=== PATIENT | female | born 1955 | race Caucasian/White ===

== ENCOUNTER 2017-11-11 16:13 | Emergency (ER) | payer OTHER, SELFPAY ==
[2017-11-11 16:17] VITALS: BP 139/50; PULSE 72; RESP 15; TEMP 36.9; O2SAT 95
--- NOTE | 2017-11-11 18:55 | DI.RAD.S_ITS ---
PROCEDURE: XR CHEST 1V INDICATIONS: chest pain TECHNIQUE: One view of the chest was acquired. COMPARISON: [facility], , CHEST 1 VIEW, 04/01/2017, 18:02. FINDINGS: Surgical changes and devices: None. Lungs and pleura: No pleural effusions or pneumothorax. Lungs are clear. Mediastinum: Tortuous thoracic aorta is again seen. Heart size is enlarged Bones and chest wall: No suspicious bony lesions. Overlying soft tissues appear unremarkable. IMPRESSION: No acute cardiopulmonary pathology. Dictated by: Rizwan Quintero M.D. on 11/11/2017 at 19:18 Approved by: Rizwan Quintero M.D. on 11/11/2017 at 19:20
[2017-11-11] MEDS: ONDANSETRON 4 MG/2 ML INJ IV (19:20)
[2017-11-11] MEDS: MORPHINE 2 MG/ML INJ IV (19:20)
[2017-11-11 19:36] LABS: Add Manual Diff / Slide Review NO; Basophils Percent Auto 1.3 % (0-2); Eosinophils Percent Auto 3.4 % (2-4); Hemoglobin 11.7 g/dL (12.0-16.0); Lymphocytes Percent Auto 22.6 % (25-40); Mean Corpuscular HGB Conc 33.4 % (30-36); Mean Corpuscular Hemoglobin 32.3 PG (26-34); Mean Corpuscular Volume 96.7 fL (80-100); Monocytes Percent Auto 6.1 % (3-14); Neutrophils Absolute Auto 7700 /uL (3000-5900); Neutrophils Percent Auto 66.6 % (50-75); Platelet Count 228 X10^3/uL (150-400); Red Blood Cell Count 3.62 X10^6/uL (4.0-5.2); Red Cell Distribution Width 13.4 % (11.6-14.8); White Blood Cell Count 11.6 X10^3/uL (4.5-11.0)
[2017-11-11 19:53] LABS: Alanine Aminotransferase 44 IU/L (9-52); Albumin 4.5 g/dL (3.5-5.0); Albumin Globulin Ratio 1.5 (1.0-2.8); Alkaline Phosphatase 65 U/L (38-126); Amylase 64 U/L (30-110); Aspartate Aminotransferase 41 IU/L (14-36); Bilirubin Total 0.5 mg/dL (0.2-1.3); Blood Urea Nitrogen 29 mg/dL (7-17); Calcium 9.8 mg/dL (8.4-10.2); Carbon Dioxide 31 mmol/L (22-32); Chloride 95 mmol/L (98-107); Creatine Kinase 149 U/L (30-135); Estimated Glomerular Filt Rate 55.8 mL/min (>60); Globulin 3.1 g/dL (1.7-4.1); Glucose 132 mg/dL (80-110); Lipase 228 U/L (23-300); Sodium 136 mmol/L (137-145); Total Protein 7.6 g/dL (6.3-8.2)
[2017-11-11 19:55] LABS: HEMOLYSIS 61 (0-50)
[2017-11-11 19:56] LABS: Potassium 3.9 mmol/L (3.4-5.1)
[2017-11-11 20:09] LABS: Troponin I < 0.012 ng/mL (0.01-0.034)
--- NOTE | 2017-11-11 20:19 | DI.CT.S_ITS ---
PROCEDURE: CT ABDOMEN PELVIS W CON INDICATIONS: abd pain- epigastric TECHNIQUE: After the administration of intravenous contrast, 5 mm thick sections acquired from the diaphragm to the symphysis. 5 mm coronal and sagittal reformats were acquired. For radiation dose reduction, the following was used: automated exposure control, adjustment of mA and/or kV according to patient size. COMPARISON: None. FINDINGS: Image quality: Excellent. ABDOMEN: Lung bases: Lung bases are clear. Heart size is normal. Solid organs: Liver is normal in size and enhancement. Hepatic steatosis is seen. Gallbladder is within normal limits. Biliary system is non dilated. Pancreas is normal in size. At least 4 small hypodense areas are seen scattered in body and tail of pancreas measures between 4-5 mm in size and are too small to characterize. No peripancreatic fluid collection or inflammation is seen. Spleen is normal in size and enhancement. No adrenal nodules. Kidneys demonstrate normal size and enhancement, without hydronephrosis. Peritoneum and bowel: Bowel loops demonstrate normal wall thickness and caliber. No free fluid or air. There is a small hiatal hernia. Nodes and vessels: No retroperitoneal or mesenteric adenopathy by size criteria. Aorta and inferior vena cava are normal in size. Miscellaneous: Small umbilical hernia is seen containing fat only. PELVIS: Genitourinary: Bladder wall thickness is normal. Miscellaneous: No inguinal hernias or adenopathy. Bones: No suspicious bony lesions. No vertebral body compression fractures. IMPRESSION: 1. No acute inflammatory process within abdomen or pelvis. No bowel obstruction. No free fluid or free air. 2. At least 4 tiny 4-5 mm hypodense areas scattered in body and tail of pancreas which may represent tiny cyst or pseudocyst versus IPMN. No peripancreatic inflammatory changes. Dictated by: Rizwan Quintero M.D. on 11/11/2017 at 21:15 Approved by: Rizwan Quintero M.D. on 11/11/2017 at 21:20
[2017-11-11 20:30] VITALS: BP 122/43; PULSE 66; RESP 100; O2SAT 22
[2017-11-11 20:30] LABS: CKMB % Relative Index 1.7 % (1.5-5.0); Creatine Kinase MB 2.46 ng/mL (<2.37)
[2017-11-11] MEDS: SODIUM CHLORIDE 0.9% 1,000 ML 100 ML IV (21:00)
[2017-11-11] MEDS: MAG HYDROX/ALUMINUM/SIMETH SUS 20 ML, LIDOCAINE VISCOUS 2% 15 ML PO (21:53)
[2017-11-11 22:38] VITALS: BP 103/51; PULSE 64; RESP 23; O2SAT 100
--- NOTE | 2017-11-11 22:46 | ED_ITS ---
HPI - Abdominal Pain <ART Rivers - Last Filed: 11/11/17 22:58> General Chief Complaint: Urogenital-Female Stated Complaint: STATES KIDNEY PAIN Time Seen by Provider: 11/11/17 18:16 Source: patient Mode of arrival: ambulatory Limitations: no limitations History of Present Illness HPI narrative: Patient presents with chief complaint of epigastric pain and right flank pain. Patient states she has had right-sided flank pain since the . She denies dysuria urgency frequency. She denies fevers. She denies nausea vomiting or diarrhea. She denies chest pain or shortness of breath or cough. She states that she has had some epigastric pain that lasted for few minutes a few days ago on his come back in some spasms. She denies radiation of this pain. States it is like an aching or burning. Flank pain stays in right flank. Of note she does have COPD is on home oxygen. Related Data Home Medications Medication Instructions Recorded Confirmed ASPIRIN (Aspirin EC) 81 mg PO Q DAY #0 10/25/10 albuterol sulfate 3 ml INH TID #0 04/01/17 albuterol sulfate [Ventolin HFA] 2 puff INH #0 04/01/17 furosemide 60 mg PO QPM #0 04/01/17 furosemide 80 mg PO QDAY #0 04/01/17 lorazepam [Ativan] 1 mg PO HS #0 04/01/17 potassium chloride 10 meq PO QDAY #0 04/01/17 Previous Rx's Medication Instructions Recorded clindamycin HCl 300 mg PO Q6H 10 Days #0 cap 04/01/17 dexamethasone 4 mg PO QDAY 3 Days #0 tab 04/01/17 tramadol 50 mg PO Q4-6H PRN #20 tab 11/11/17 Allergies Allergy/AdvReac Type Severity Reaction Status Date / Time Penicillins [PENICILLINS] Allergy Severe HIVES Unverified 06/03/17 12:56 Sulfa (Sulfonamide Allergy Severe HIVES Unverified 06/03/17 12:56 Antibiotics) [SULFA (SULFONAMIDE ANTIBIOTICS)] chlorthalidone Allergy Unknown Unverified 06/03/17 12:56 [CHLORTHALIDONE] adhesive [ADHESIVE] AdvReac Mild HIVES Unverified 06/03/17 12:56 Review of Systems <ART Rivers - Last Filed: 11/11/17 22:58> Review of Systems GENERAL: Denies chills, fatigue, malaise, fever, sweats. HEENT: Denies sinus pain, ear pain, sore throat, difficulty swallowing, dizziness. RESPIRATORY: Denies dyspnea, cough, wheezing, hemoptysis, sputum. CARDIOVASCULAR: Denies chest pain, palpitations, orthopnea, edema, GASTROINTESTINAL: See HPI : See HPI MUSCULOSKELETAL: denies weakness, joint pain, or bony pain SKIN: Denies rash, skin lesions, or other NEUROLOGIC: Denies weakness, headache, numbness, change in speech, confusion, seizures, incoordination. PSYCHIATRIC: No concerning psychosocial issues. 12 point review of systems is negative except for those stated above Exam <Sofyaemma Feltonmer, [facility] - Last Filed: 11/11/17 22:58> Narrative Exam Narrative: GENERAL: Chronically ill elderly female. HEAD: Atraumatic. Normocephalic. No temporal or scalp tenderness. EYES: Pupils equal round and reactive. Extraocular motions intact. No scleral icterus. No injection or drainage. ENT: Nose without bleeding, purulent drainage or septal hematoma. Throat without erythema, tonsillar hypertrophy or exudate. Uvula midline. Airway patent. NECK: Trachea midline. No JVD or lymphadenopathy. Supple, nontender, no meningeal signs. CARDIOVASCULAR: Regular rate and rhythm without murmurs, gallops, or rubs. RESPIRATORY: Decreased with expiratory wheeze to auscultation. Breath sounds equal bilaterally. No wheezes, rales, or rhonchi. GASTROINTESTINAL: Abdomen obese and diffusely tender in the left upper quadrant and epigastric area, negative Lizama sign., nondistended. No hepato-splenomegaly , or palpable masses. No guarding. Nonrigid abdomen. Active bowel sounds all 4 quadrants. No palpable pulsatile mass. EXTREMITIES: No clubbing, cyanosis, or edema. No joint tenderness, effusion, or edema noted. BACK: Nontender without deformity or crepitance. Flank tenderness noted on right side. NEURO: AOx3. SKIN: No rash or erythema. Initial Vital Signs Initial Vital Signs: Vital Signs Temperature 98.5 F 11/11/17 16:17 Pulse Rate 72 11/11/17 16:17 Respiratory Rate 15 11/11/17 16:17 Blood Pressure 139/50 L 11/11/17 16:17 Pulse Oximetry 95 11/11/17 16:17 <Mani Hayward DO - Last Filed: 11/11/17 23:49> Initial Vital Signs Initial Vital Signs: Vital Signs Temperature 98.5 F 11/11/17 16:17 Pulse Rate 72 11/11/17 16:17 Respiratory Rate 15 11/11/17 16:17 Blood Pressure 139/50 L 11/11/17 16:17 Pulse Oximetry 95 11/11/17 16:17 Course <ART Rivers - Last Filed: 11/11/17 22:58> Orders Ordered: ED Orders 11/11/17 18:53 EKG-12 Lead Stat 11/11/17 18:55 XR chest 1V Stat 11/11/17 19:35 Amylase Stat Complete Blood Count AUTO DIFF Stat Comprehensive Metabolic Panel Stat Lipase Stat Troponin & CK Cardiac Panel Stat 11/11/17 20:19 CT abdomen pelvis w con Stat Discontinued Medications Al Hydrox/Mg Hydrox/Simethicone 20 ml/ Lidocaine HCl 15 ml 0 ml PO NOW ONE Stop: 11/11/17 21:51 Last Admin: 11/11/17 21:53 Dose: 35 ml Sodium Chloride (Normal Saline 0.9%) 1,000 mls @ 100 mls/hr IV CONT JOSÉ MIGUEL Last Infusion: 11/11/17 23:15 Dose: 100 mls/hr Admin: 11/11/17 21:00 Dose: 100 mls/hr Morphine Sulfate (Morphine) 2 mg IV NOW ONE Stop: 11/11/17 18:54 Last Admin: 11/11/17 19:20 Dose: 2 mg Ondansetron HCl (Zofran) 4 mg IV NOW ONE Stop: 11/11/17 18:54 Last Admin: 11/11/17 19:20 Dose: 4 mg Tramadol HCl (Ultram) 50 mg PO NOW ONE Stop: 11/11/17 22:53 Last Admin: 11/11/17 23:03 Dose: 50 mg Vital Signs - 8 hr 11/11/17 16:17 11/11/17 20:30 11/11/17 22:38 Temperature 98.5 F Pulse Rate 72 66 64 Respiratory Rate 15 100 H 23 Blood Pressure 139/50 L Blood Pressure [Right Arm] 122/43 L 103/51 L Pulse Oximetry 95 22 L 100 <Mani Hayward DO - Last Filed: 11/11/17 23:49> Orders Ordered: ED Orders 11/11/17 18:53 EKG-12 Lead Stat 11/11/17 18:55 XR chest 1V Stat 11/11/17 19:35 Amylase Stat Complete Blood Count AUTO DIFF Stat Comprehensive Metabolic Panel Stat Lipase Stat Troponin & CK Cardiac Panel Stat 11/11/17 20:19 CT abdomen pelvis w con Stat Discontinued Medications Al Hydrox/Mg Hydrox/Simethicone 20 ml/ Lidocaine HCl 15 ml 0 ml PO NOW ONE Stop: 11/11/17 21:51 Last Admin: 11/11/17 21:53 Dose: 35 ml Sodium Chloride (Normal Saline 0.9%) 1,000 mls @ 100 mls/hr IV CONT JOSÉ MIGUEL Last Infusion: 11/11/17 23:15 Dose: 100 mls/hr Admin: 11/11/17 21:00 Dose: 100 mls/hr Morphine Sulfate (Morphine) 2 mg IV NOW ONE Stop: 11/11/17 18:54 Last Admin: 11/11/17 19:20 Dose: 2 mg Ondansetron HCl (Zofran) 4 mg IV NOW ONE Stop: 11/11/17 18:54 Last Admin: 11/11/17 19:20 Dose: 4 mg Tramadol HCl (Ultram) 50 mg PO NOW ONE Stop: 11/11/17 22:53 Last Admin: 11/11/17 23:03 Dose: 50 mg Vital Signs - 8 hr 11/11/17 16:17 11/11/17 20:30 11/11/17 22:38 Temperature 98.5 F Pulse Rate 72 66 64 Respiratory Rate 15 100 H 23 Blood Pressure 139/50 L Blood Pressure [Right Arm] 122/43 L 103/51 L Pulse Oximetry 95 22 L 100 MDM - Abdominal Pain <ELPIDIO Rivers-BC - Last Filed: 11/11/17 22:58> Lab Data Result diagrams: 11/11/17 19:35 11/11/17 19:35 Lab Results 11/11/17 11/11/17 Range/Units 19:35 19:35 WBC 11.6 H (4.5-11.0) X10^3/uL RBC 3.62 L (4.0-5.2) X10^6/uL Hgb 11.7 L (12.0-16.0) g/dL Hct 35.0 L (36-46) % MCV 96.7 (80-100) fL MCH 32.3 (26-34) PG MCHC 33.4 (30-36) % RDW 13.4 (11.6-14.8) % Plt Count 228 (150-400) X10^3/uL Neut % (Auto) 66.6 (50-75) % Lymph % (Auto) 22.6 L (25-40) % [place] % (Auto) 6.1 (3-14) % Eos % (Auto) 3.4 (2-4) % Baso % (Auto) 1.3 (0-2) % Neut # (Auto) 7700 H (9213-9784) /uL Sodium 136 L (137-145) mmol/L Potassium 3.9 (3.4-5.1) mmol/L Chloride 95 L (98-107) mmol/L Carbon Dioxide 31 (22-32) mmol/L BUN 29 H (7-17) mg/dL Creatinine 1.00 (0.52-1.04) mg/dL Estimated GFR 55.8 L (>60) mL/min BUN/Creatinine Ratio 29.0 H (6-22) Glucose 132 H (80-110) mg/dL Calcium 9.8 (8.4-10.2) mg/dL Total Bilirubin 0.5 (0.2-1.3) mg/dL AST 41 H (14-36) IU/L ALT 44 (9-52) IU/L Alkaline Phosphatase 65 (38-126) U/L Total Creatine Kinase 149 H (30-135) U/L CK-MB (CK-2) 2.46 H (<2.37) ng/mL CK-MB (CK-2) Rel Index 1.7 (1.5-5.0) % Troponin I < 0.012 (0.01-0.034) ng/mL Total Protein 7.6 (6.3-8.2) g/dL Albumin 4.5 (3.5-5.0) g/dL Globulin 3.1 (1.7-4.1) g/dL Albumin/Globulin Ratio 1.5 (1.0-2.8) Amylase 64 (30-110) U/L Lipase 228 (23-300) U/L Point of care testing: Urine Dip Bedside Urine Glucose Negative Bedside Urine Bilirubin - Negative Bedside Urine Ketone - Negative Urine Specific [place] 1.0 Bedside Urine Occult Blood - Negative Bedside Urine pH 6 Bedside Urine Protein - Negative Bedside Urine Urobilinogen +/- 1mg Bedside Urine Nitrite - Negative Bedside Urine Leukocytes - Negative Esterase Imaging Data Chest x-ray: Radiologist's impression: [address] [address] XRay Report Signed Patient: Tish Yuen AMR#: [id number] : 4Acct:[id number] Age/Sex: 62 / FDate of Service: 11/11/17 Loc: ED Accession Number: [id number] Procedure: XR chest 1V Ordering Provider: Sofya Oseguera PROCEDURE: XR CHEST 1V INDICATIONS: chest pain TECHNIQUE: One view of the chest was acquired. COMPARISON: [facility], CHEST 1 VIEW, 04/01/2017, 18:02. FINDINGS: Surgical changes and devices: None. Lungs and pleura: No pleural effusions or pneumothorax. Lungs are clear. Mediastinum: Tortuous thoracic aorta is again seen. Heart size is enlarged Bones and chest wall: No suspicious bony lesions. Overlying soft tissues appear unremarkable. IMPRESSION: No acute cardiopulmonary pathology. Dictated by: Rizwan Quintero M.D. on 11/11/2017 at 19:18 Approved by: Rizwan Quintero M.D. on 11/11/2017 at 19:20 CT scan - abdomen: Radiologist's impression: [address] [address] [address] Scan Report Signed Patient: Tish Yuen AMR#: [id number] : 4Acct:[id number] Age/Sex: 62 / FDate of Service: 11/11/17 Loc: ED Accession Number: [id number] Procedure: CT abdomen pelvis w con Ordering Provider: Sofya Oseguera PROCEDURE: CT ABDOMEN PELVIS W CON INDICATIONS: abd pain- epigastric TECHNIQUE: After the administration of intravenous contrast, 5 mm thick sections acquired from the diaphragm to the symphysis. 5 mm coronal and sagittal reformats were acquired. For radiation dose reduction, the following was used: automated exposure control, adjustment of mA and/or kV according to patient size. COMPARISON: None. FINDINGS: Image quality: Excellent. ABDOMEN: Lung bases: Lung bases are clear. Heart size is normal. Solid organs: Liver is normal in size and enhancement. Hepatic steatosis is seen. Gallbladder is within normal limits. Biliary system is non dilated. Pancreas is normal in size. At least 4 small hypodense areas are seen scattered in body and tail of pancreas measures between 4-5 mm in size and are too small to characterize. No peripancreatic fluid collection or inflammation is seen. Spleen is normal in size and enhancement. No adrenal nodules. Kidneys demonstrate normal size and enhancement, without hydronephrosis. Peritoneum and bowel: Bowel loops demonstrate normal wall thickness and caliber. No free fluid or air. There is a small hiatal hernia. Nodes and vessels: No retroperitoneal or mesenteric adenopathy by size criteria. Aorta and inferior vena cava are normal in size. Miscellaneous: Small umbilical hernia is seen containing fat only. PELVIS: Genitourinary: Bladder wall thickness is normal. Miscellaneous: No inguinal hernias or adenopathy. Bones: No suspicious bony lesions. No vertebral body compression fractures. IMPRESSION: 1. No acute inflammatory process within abdomen or pelvis. No bowel obstruction. No free fluid or free air. 2. At least 4 tiny 4-5 mm hypodense areas scattered in body and tail of pancreas which may represent tiny cyst or pseudocyst versus IPMN. No peripancreatic inflammatory changes. Dictated by: Rizwan Quintero M.D. on 11/11/2017 at 21:15 Approved by: Rizwan Quintero M.D. on 11/11/2017 at 21:20 ECG Data Attestation: I personally reviewed and interpreted this ECG as follows: Prior ECG tracings: not available for review Interpretation: Ventricular rate 75. Syncope CC. No ST elevation or depression. CO interval 192 MDM Narrative Medical decision making narrative: The patient presented with chief complaint of flank pain and epigastric pain. Her lab work came back grossly normal for her. She was noted to be anemic, but this is consistent with her baseline. Her troponin was negative and her CK-MB relative index was low. We controlled her pain with morphine in the emergency department. Her abdominal CT scan revealed several masses in her pancreas of indeterminate nature that are very small. I discussed this with the patient, discussed that she needs to follow up with primary care provider in the next few days for further workup and imaging. She had no questions or concerns upon discharge. I gave her a prescription of tramadol. I discussed return precautions including inability keep down fluids, symptoms of heart attack or stroke. Patient states understanding of discharge instructions. <Mani Hayward, DO - Last Filed: 11/11/17 23:49> Lab Data Lab Results 11/11/17 11/11/17 Range/Units 19:35 19:35 WBC 11.6 H (4.5-11.0) X10^3/uL RBC 3.62 L (4.0-5.2) X10^6/uL Hgb 11.7 L (12.0-16.0) g/dL Hct 35.0 L (36-46) % MCV 96.7 (80-100) fL MCH 32.3 (26-34) PG MCHC 33.4 (30-36) % RDW 13.4 (11.6-14.8) % Plt Count 228 (150-400) X10^3/uL Neut % (Auto) 66.6 (50-75) % Lymph % (Auto) 22.6 L (25-40) % [place] % (Auto) 6.1 (3-14) % Eos % (Auto) 3.4 (2-4) % Baso % (Auto) 1.3 (0-2) % Neut # (Auto) 7700 H (7310-2589) /uL Sodium 136 L (137-145) mmol/L Potassium 3.9 (3.4-5.1) mmol/L Chloride 95 L (98-107) mmol/L Carbon Dioxide 31 (22-32) mmol/L BUN 29 H (7-17) mg/dL Creatinine 1.00 (0.52-1.04) mg/dL Estimated GFR 55.8 L (>60) mL/min BUN/Creatinine Ratio 29.0 H (6-22) Glucose 132 H (80-110) mg/dL Calcium 9.8 (8.4-10.2) mg/dL Total Bilirubin 0.5 (0.2-1.3) mg/dL AST 41 H (14-36) IU/L ALT 44 (9-52) IU/L Alkaline Phosphatase 65 (38-126) U/L Total Creatine Kinase 149 H (30-135) U/L CK-MB (CK-2) 2.46 H (<2.37) ng/mL CK-MB (CK-2) Rel Index 1.7 (1.5-5.0) % Troponin I < 0.012 (0.01-0.034) ng/mL Total Protein 7.6 (6.3-8.2) g/dL Albumin 4.5 (3.5-5.0) g/dL Globulin 3.1 (1.7-4.1) g/dL Albumin/Globulin Ratio 1.5 (1.0-2.8) Amylase 64 (30-110) U/L Lipase 228 (23-300) U/L Point of care testing: Urine Dip Bedside Urine Glucose Negative Bedside Urine Bilirubin - Negative Bedside Urine Ketone - Negative Urine Specific [place] 1.0 Bedside Urine Occult Blood - Negative Bedside Urine pH 6 Bedside Urine Protein - Negative Bedside Urine Urobilinogen +/- 1mg Bedside Urine Nitrite - Negative Bedside Urine Leukocytes - Negative Esterase Discharge Plan Departure Patient Disposition: Home Clinical Impression: Cystic mass of pancreas Discharge Date/Time: 11/11/17 23:17 Interventions: ED Discharge Assessment Last Done: 11/11/17 23:16 Instructions: DI for Abdominal Pain-Adult, DI for Flank Pain Activity Restrictions/Additional Instructions: Today we found multiple small cystic masses on your pancreas. Please follow-up with her primary care provider regarding this as they need further workup and further imaging. Come back to the emergency department for any acute concerns including heart attack or stroke. I have given you a small pain medication prescription, and this can be constipating so please take it with extra fiber. Use stool softeners if needed. Prescriptions: New tramadol 50 mg tablet 50 mg PO Q4-6H PRN (Reason: pain) Qty: 20 RF: 0 No Action ASPIRIN (Aspirin EC) 81 mg PO Q DAY Qty: 0 RF: 0 lorazepam [Ativan] 1 MG tablet 1 mg PO HS Qty: 0 RF: 0 albuterol sulfate 2.5 MG/3 ML solution for nebulization 3 ml INH TID Qty: 0 RF: 0 albuterol sulfate [Ventolin HFA] 90 MCG/PUFF HFA aerosol inhaler 2 puff INH Qty: 0 RF: 0 furosemide 40 MG tablet 60 mg PO QPM Qty: 0 RF: 0 furosemide 40 MG tablet 80 mg PO QDAY Qty: 0 RF: 0 potassium chloride 10 MEQ capsule, extended release 10 meq PO QDAY Qty: 0 RF: 0 clindamycin HCl 300 MG capsule 300 mg PO Q6H 10 Days Qty: 0 RF: 0 dexamethasone 4 MG tablet 4 mg PO QDAY 3 Days Qty: 0 RF: 0 Referrals: Nick Washington MD [Primary Care Provider] - <Mani Hayward DO - Last Filed: 11/11/17 23:49> Cosign ED Attending Cosadánature Attestation: I was available for consultation during this patient's emergency department encounter
[2017-11-11] MEDS: TRAMADOL 50 MG TABLET PO (23:03)
== END 2017-11-11 23:17 | disposition home or self-care (01) ==
PROVIDERS: Emergency Medicine; Emergency Provider Nurse Practitioner Family
DX: K86.2 Cyst of pancreas (principal)
CPT/HCPCS: 36415; 36591; 71045; 74177; 80053; 81003; 82150; 82550; 82553; 83690; 84484; 85025; 93005; 96361; 96374; 96375; 99283; 99285; J2270; J2405; Q9967

== ENCOUNTER → 2018-03-11 14:48 | Outpatient (CLI) | payer OTHER, SELFPAY ==
--- NOTE | 2018-03-11 | DI.ECHO.S_ITS ---
[place] +---------+ [facility] +---------+ : : [address] : : : : [id number] : : : : Phone: [phone] Echocardiogram Report + + :Name: AV CAIN Study Date: 03/11/2018 Height: 59 in : :[facility] Weight: 222 lb : : Gender: Female BSA: 1.9 m2 : :: 1955 Age: 62 yrs BP: 132/66 mmHg: :Reason For Study: Cor Pulmonale : :Ordering Physician: Tommy : :[place] Performed By: Lizbeth Jimenes : + + Interpretation Summary The left ventricle is grossly normal size. The ejection fraction is estimated to be 65-70%. The right ventricle is mildly dilated. The right ventricle appears to be hypertrophied. The right ventricular systolic function is normal. There is mild to moderate tricuspid regurgitation. Compared to the prior echo exam, there has been an increase in TR severity. The right ventricular systolic pressure is estimated to be at least 45 mmHg based on an estimated right atrial pressure of 3 mm Hg. Procedure: A two-dimensional transthoracic echocardiogram with color flow and Doppler was performed. The study quality was technically difficult. Images from the parasternal window were difficult to obtain and are suboptimal in quality. Comparison is made with the echocardiogram of 09/05/2016. The patient was in normal sinus rhythm during the exam. The patient had frequent PVCs during the exam. Left Ventricle: The left ventricle is not well visualized. The left ventricle is grossly normal size. There is no thrombus. The ejection fraction is estimated to be 65-70%. Septal motion is consistent with conduction abnormality. Diastolic parameters suggest a relaxation abnormality of the left ventricle, consistent with probable normal filling pressures. Right Ventricle: The right ventricle is mildly dilated. The right ventricle appears to be hypertrophied. The right ventricular systolic function is normal. Atria: The left atrium is mildly dilated. The left atrium has mildly increased in size since the prior echo exam. The right atrium is mildly dilated. There has been no significant change since the previous study. There is no Doppler evidence for an interatrial shunt. Mitral Valve: The mitral valve leaflets appear mildly thickened, but open well. There is mild mitral annular calcification. There is trace mitral regurgitation. Aortic Valve: The aortic valve is not well visualized. The aortic valve is mildly calcified. There is no hemodynamically significant valvular aortic stenosis. No aortic regurgitation is present. Tricuspid Valve: The tricuspid valve is not well visualized, but is grossly normal. There is mild to moderate tricuspid regurgitation. The right ventricular systolic pressure is estimated to be at least 45 mmHg based on an estimated right atrial pressure of 3 mm Hg. Compared to the prior echo exam, there has been an increase in TR severity. Pulmonic Valve: The pulmonic valve is not well visualized. Great Vessels: The aortic root is not well visualized. The ascending aorta could not be visualized. The IVC is of normal diameter and collapses greater than 50% with a sniff. This suggests a low right atrial pressure of 3 mm Hg. Pericardium/ Pleura There is no pericardial effusion. MMode/2D Measurements & Calculations LA A2 area: 19.1 cm2 RA long axis: 4.3 cm LA A4 area: 22.8 cm2 RA area: 14.4 cm2 LA length (vol): 5.0 cm RA vol: 41.2 ml LA vol: 74.7 ml RA : 21.4 ml/m2 LA vol index: 38.7 ml/m2 IVC diam: 1.4 cm TAPSE: 2.7 cm Doppler Measurements & Calculations Ao V2 max: 192.8 cm/sec LVOT Max Mike: 125.2 cm/sec Ao V2 mean: 99.6 cm/sec LV V1 max P.3 mmHg Ao max P.9 mmHg LV V1 VTI: 24.8 cm Ao mean P.1 mmHg sev ratio: 0.73 Ao V2 VTI: 33.9 cm MV E max mike: 79.6 cm/sec TR max mike: 323.9 cm/sec MV A max mike: 99.7 cm/sec TR max P.0 mmHg MV E/A: 0.80 Med Peak E' Mike: 7.2 cm/sec E/E' med: 11.1 Lat Peak E' Mike: 12.2 cm/sec E/E' lat: 6.5 E/e' average: 8.8 MV dec time: 0.23 sec MV P1/2t: 67.4 msec MV P1/2t max mike: 79.9 cm/sec MVA(P1/2t): 3.3 cm2 Reading Physician:PM
[2018-03-11 15:52] LABS: BUN Creatinine Ratio 25.5 (6-22); Blood Urea Nitrogen 28 mg/dL (7-17); Calcium 9.8 mg/dL (8.4-10.2); Carbon Dioxide 32 mmol/L (22-32); Chloride 94 mmol/L (98-107); Glucose 136 mg/dL (80-110); HEMOLYSIS < 15 (0-50); Potassium 4.3 mmol/L (3.4-5.1); Sodium 137 mmol/L (137-145)
== END ==
PROVIDERS: Visit Provider Internal Medicine Cardiovascular Disease
DX: I27.81 Cor pulmonale (chronic) (principal); I07.1 Rheumatic tricuspid insufficiency
CPT/HCPCS: 36415; 80048; 93306

== ENCOUNTER → 2018-06-11 16:31 | Outpatient (CLI) | payer OTHER, SELFPAY ==
[2018-06-11 18:16] LABS: BUN Creatinine Ratio 26.4 (6-22); Blood Urea Nitrogen 29 mg/dL (7-17); Calcium 9.8 mg/dL (8.4-10.2); Carbon Dioxide 32 mmol/L (22-32); Chloride 96 mmol/L (98-107); Glucose 114 mg/dL (80-110); HEMOLYSIS < 15 (0-50); Potassium 4.4 mmol/L (3.4-5.1); Sodium 137 mmol/L (137-145)
== END ==
PROVIDERS: Visit Provider Internal Medicine Critical Care Medicine
DX: R06.09 Other forms of dyspnea (principal)
CPT/HCPCS: 36415; 80048

== ENCOUNTER → 2018-11-02 16:44 | Outpatient (CLI) | payer MEDICARE, OTHER, SELFPAY ==
[2018-11-02 17:27] LABS: Hemoglobin A1C% w Est Avg Glu 6.3 % (4.0-6.0)
[2018-11-02 17:33] LABS: BUN Creatinine Ratio 31.8 (6-22); Blood Urea Nitrogen 35 mg/dL (7-17); Calcium 10.4 mg/dL (8.4-10.2); Carbon Dioxide 31 mmol/L (22-32); Chloride 95 mmol/L (98-107); Estimated Glomerular Filt Rate 49.8 mL/min (>60); Glucose 124 mg/dL (80-110); HEMOLYSIS 16 (0-50); Potassium 4.3 mmol/L (3.4-5.1); Sodium 139 mmol/L (137-145)
[2018-11-02 17:44] LABS: B Type Natriuretic Peptide < 100 (<100)
[2018-11-02 17:50] LABS: Free T4, Direct Thyroxine 1.42 ng/dL (0.78-2.19)
[2018-11-02 18:04] LABS: Thyroid Stimulating Hormone 1.08 uIU/mL (0.47-4.68)
== END ==
PROVIDERS: Family Provider Internal Medicine Cardiovascular Disease; PCP Internal Medicine; Visit Provider Internal Medicine
DX: E03.9 Hypothyroidism, unspecified (principal); E11.9 Type 2 diabetes mellitus without complications; I10 Essential (primary) hypertension; I50.9 Heart failure, unspecified
CPT/HCPCS: 36415; 80048; 83036; 83880; 84439; 84443

== ENCOUNTER → 2018-11-19 16:52 | Outpatient (CLI) | payer MEDICARE, OTHER, SELFPAY ==
[2018-11-19 17:55] LABS: BUN Creatinine Ratio 31.9 (6-22); Blood Urea Nitrogen 51 mg/dL (7-17); Calcium 10.2 mg/dL (8.4-10.2); Carbon Dioxide 31 mmol/L (22-32); Chloride 92 mmol/L (98-107); Estimated Glomerular Filt Rate 32.3 mL/min (>60); Glucose 145 mg/dL (80-110); HEMOLYSIS < 15 (0-50); Potassium 4.4 mmol/L (3.4-5.1); Sodium 135 mmol/L (137-145)
== END ==
PROVIDERS: Family Provider Internal Medicine Cardiovascular Disease; PCP Internal Medicine; Visit Provider Internal Medicine Cardiovascular Disease
DX: I27.81 Cor pulmonale (chronic) (principal)
CPT/HCPCS: 36415; 80048

== ENCOUNTER → 2018-12-03 17:15 | Outpatient (CLI) | payer MEDICARE, OTHER, SELFPAY ==
[2018-12-03 18:05] LABS: BUN Creatinine Ratio 33.8 (6-22); Blood Urea Nitrogen 44 mg/dL (7-17); Calcium 10.3 mg/dL (8.4-10.2); Carbon Dioxide 29 mmol/L (22-32); Chloride 96 mmol/L (98-107); Estimated Glomerular Filt Rate 41.1 mL/min (>60); Glucose 141 mg/dL (80-110); HEMOLYSIS < 15 (0-50); Potassium 4.4 mmol/L (3.4-5.1); Sodium 137 mmol/L (137-145)
== END ==
PROVIDERS: PCP Internal Medicine; Visit Provider Internal Medicine Cardiovascular Disease
DX: N28.9 Disorder of kidney and ureter, unspecified (principal)
CPT/HCPCS: 36415; 80048

== ENCOUNTER → 2019-01-10 14:54 | Outpatient (CLI) | payer MEDICARE, OTHER, SELFPAY ==
--- NOTE | 2019-01-10 | DI.ECHO.S_ITS ---
[place] [facility]---------+ [facility] +---------+ : : [address] : : : [address] : : : : [id number] : : : : Phone: [phone]---------+ Echocardiogram Report + + :Name: AV CAIN Study Date: 01/10/2019 Height: 59 in : :[facility] Weight: 225 lb : : Gender: Female BSA: 1.9 m2 : :: 1955 Age: 63 yrs BP: 130/70 mmHg: :Reason For Study: COR PULMONALE : : Performed By: [facility] Staff : :Referring: CECIL CONWAY : + + Interpretation Summary The left ventricle is normal in size. The ejection fraction is estimated to be 70-75%. Borderline right ventricular enlargement. The right ventricular systolic function is normal. There is mild to moderate tricuspid regurgitation. Compared to the prior echo exam, there has been no change in TR severity. The right ventricular systolic pressure is estimated to be at least 66.4 mmHg based on an estimated right atrial pressure of 3 mm Hg. Compared to the prior echo exam, there has been an increase in the severity of pulmonary hypertension. In March 11, 2018, right ventricular systolic pressure was about 45 mmHg. Procedure: A two-dimensional transthoracic echocardiogram with color flow and Doppler was performed. The study quality was technically limited. The parasternal views were not obtained due to extreme shortness of breath and body habitus. Prior echo performed on 03/11/18. The patient was in normal sinus rhythm during the exam. Left Ventricle: The left ventricle is normal in size. There is normal left ventricular wall thickness. There is no thrombus. The left ventricle is hyperdynamic. The ejection fraction is estimated to be 70-75%. There are no focal wall motion abnormalities. Diastolic parameters suggest a relaxation abnormality of the left ventricle, consistent with probable normal filling pressures. Right Ventricle: Borderline right ventricular enlargement. The right ventricle appears to be hypertrophied. The right ventricular systolic function is normal. Atria: The left atrial size is normal. The left atrium has mildly decreased in size since the prior echo exam. The right atrium is mildly dilated. There has been no significant change since the previous study. The interatrial septum is intact with no evidence for an atrial septal defect. Mitral Valve: The mitral valve is grossly normal. There is trace mitral regurgitation. Aortic Valve: The aortic valve is not well visualized. There is no hemodynamically significant valvular aortic stenosis. No aortic regurgitation is present. Tricuspid Valve: The tricuspid valve is not well visualized. The tricuspid valve is not well visualized, but is grossly normal. There is mild to moderate tricuspid regurgitation. The right ventricular systolic pressure is estimated to be at least 66.4 mmHg based on an estimated right atrial pressure of 3 mm Hg. Compared to the prior echo exam, there has been no change in TR severity. Compared to the prior echo exam, there has been an increase in the severity of pulmonary hypertension. Pulmonic Valve: The pulmonic valve is not well visualized. Great Vessels: The aortic root is not well visualized. The ascending aorta could not be visualized. The pulmonary is not well visualized. The IVC is of normal diameter and collapses greater than 50% with a sniff. This suggests a low right atrial pressure of 3 mm Hg. Pericardium/ Pleura There is no pericardial effusion. There is an anterior echo-free space consistent with a fat pad. There is no pleural effusion. MMode/2D Measurements & Calculations LA A4 area: 15.6 cm2 RA long axis: 5.1 cm LA length (vol): 4.7 cm RA area: 19.8 cm2 RA vol: 65.2 ml RA : 33.6 ml/m2 IVC diam: 1.8 cm TAPSE: 2.2 cm Doppler Measurements & Calculations Ao V2 max: 188.8 cm/sec LVOT Max Mike: 157.3 cm/sec Ao V2 mean: 117.3 cm/sec LV V1 max P.9 mmHg Ao max P.3 mmHg LV V1 VTI: 34.4 cm Ao mean P.8 mmHg sev ratio: 0.85 Ao V2 VTI: 40.3 cm MV E max mike: 71.6 cm/sec TR max mike: 361.1 cm/sec MV A max mike: 98.7 cm/sec TR max P.9 mmHg MV E/A: 0.73 Med Peak E' Mike: 6.6 cm/sec E/E' med: 10.8 Lat Peak E' Mike: 6.6 cm/sec E/E' lat: 10.9 E/e' average: 10.9 MV dec time: 0.26 sec Reading Physician:12:52 PM
== END ==
PROVIDERS: Family Provider Internal Medicine; PCP Internal Medicine; Visit Provider Internal Medicine Cardiovascular Disease
DX: I07.1 Rheumatic tricuspid insufficiency (principal); I27.81 Cor pulmonale (chronic)
CPT/HCPCS: 93306

== ENCOUNTER → 2019-01-25 14:57 | Outpatient (CLI) | payer MEDICARE, OTHER, SELFPAY ==
[2019-01-25 16:08] LABS: BUN Creatinine Ratio 25.7 (6-22); Blood Urea Nitrogen 36 mg/dL (7-17); Calcium 10.4 mg/dL (8.4-10.2); Carbon Dioxide 33 mmol/L (22-32); Chloride 95 mmol/L (98-107); Estimated Glomerular Filt Rate 37.7 mL/min (>60); Glucose 138 mg/dL (80-110); HEMOLYSIS < 15 (0-50); Potassium 4.7 mmol/L (3.4-5.1); Sodium 137 mmol/L (137-145)
== END ==
PROVIDERS: Family Provider Internal Medicine; PCP Internal Medicine; Visit Provider Internal Medicine Critical Care Medicine
DX: R06.09 Other forms of dyspnea (principal)
CPT/HCPCS: 36415; 80048

== ENCOUNTER → 2019-02-02 16:34 | Outpatient (CLI) | payer MEDICARE, OTHER, SELFPAY ==
[2019-02-02 17:51] LABS: BUN Creatinine Ratio 32.3 (6-22); Blood Urea Nitrogen 42 mg/dL (7-17); Calcium 10.2 mg/dL (8.4-10.2); Carbon Dioxide 32 mmol/L (22-32); Chloride 97 mmol/L (98-107); Estimated Glomerular Filt Rate 41.1 mL/min (>60); Glucose 122 mg/dL (80-110); HEMOLYSIS < 15 (0-50); Potassium 4.6 mmol/L (3.4-5.1); Sodium 139 mmol/L (137-145)
== END ==
PROVIDERS: Family Provider Internal Medicine; PCP Internal Medicine; Visit Provider Internal Medicine Critical Care Medicine
DX: R06.09 Other forms of dyspnea (principal)
CPT/HCPCS: 36415; 80048

== ENCOUNTER → 2019-03-11 16:38 | Outpatient (CLI) | payer MEDICARE, OTHER, SELFPAY ==
[2019-03-11 17:07] LABS: BUN Creatinine Ratio 30.8 (6-22); Blood Urea Nitrogen 37 mg/dL (7-17); Calcium 10.3 mg/dL (8.4-10.2); Carbon Dioxide 30 mmol/L (22-32); Chloride 96 mmol/L (98-107); Creatine Kinase 114 U/L (30-135); Estimated Glomerular Filt Rate 45.1 mL/min (>60); Glucose 153 mg/dL (80-110); HEMOLYSIS < 15 (0-50); Magnesium 1.9 mg/dL (1.6-2.3); Potassium 4.3 mmol/L (3.4-5.1); Sodium 136 mmol/L (137-145)
== END ==
PROVIDERS: Family Provider Internal Medicine; PCP Internal Medicine; Visit Provider Nurse Practitioner
DX: R25.2 Cramp and spasm (principal); T50.1X5A Adverse effect of loop [high-ceiling] diuretics, initial encounter; Z79.899 Other long term (current) drug therapy; M62.838 Other muscle spasm
CPT/HCPCS: 36415; 80048; 82550; 83735

== ENCOUNTER → 2019-05-24 16:35 | Outpatient (CLI) | payer MEDICARE, OTHER, SELFPAY ==
[2019-05-24 18:20] LABS: BUN Creatinine Ratio 31.2 (6-22); Blood Urea Nitrogen 44 mg/dL (7-17); Carbon Dioxide 31 mmol/L (22-32); Chloride 93 mmol/L (98-107); Estimated Glomerular Filt Rate 37.4 mL/min (>60); Glucose 143 mg/dL (80-110); HEMOLYSIS < 15 (0-50); Potassium 4.7 mmol/L (3.4-5.1); Sodium 133 mmol/L (137-145)
[2019-05-24 18:22] LABS: Hemoglobin A1C% w Est Avg Glu 7.3 % (4.0-6.0)
[2019-05-24 19:05] LABS: Vitamin B12 864 pg/mL (239-931)
== END ==
PROVIDERS: Family Provider Internal Medicine; PCP Internal Medicine; Referring Provider Internal Medicine; Visit Provider Internal Medicine
DX: E11.9 Type 2 diabetes mellitus without complications (principal); E78.5 Hyperlipidemia, unspecified; I10 Essential (primary) hypertension
CPT/HCPCS: 36415; 80048; 82607; 83036

== ENCOUNTER → 2019-07-21 16:06 | Outpatient (CLI) | payer MEDICARE, OTHER, SELFPAY ==
[2019-07-21 17:38] LABS: Blood Urea Nitrogen 28 mg/dL (7-17); Calcium 10.1 mg/dL (8.4-10.2); Carbon Dioxide 35 mmol/L (22-32); Chloride 92 mmol/L (98-107); Estimated Glomerular Filt Rate 44.1 mL/min (>60); Glucose 155 mg/dL (80-110); HEMOLYSIS < 15 (0-50); Magnesium 1.8 mg/dL (1.6-2.3); Potassium 4.2 mmol/L (3.4-5.1); Sodium 134 mmol/L (137-145)
== END ==
PROVIDERS: Family Provider Internal Medicine; PCP Internal Medicine; Referring Provider Internal Medicine Cardiovascular Disease; Visit Provider Internal Medicine Cardiovascular Disease
DX: I27.81 Cor pulmonale (chronic) (principal); I10 Essential (primary) hypertension
CPT/HCPCS: 36415; 80048; 83735

== ENCOUNTER → 2019-08-02 11:50 | Outpatient (CLI) | payer MEDICARE, OTHER, SELFPAY ==
[2019-08-03 10:39] LABS: COVID19 Sendout NOT DETECTED (Not Detect)
== END ==
PROVIDERS: Family Provider Internal Medicine; PCP Internal Medicine; Visit Provider Registered Nurse
DX: Z01.812 Encounter for preprocedural laboratory examination (principal)
CPT/HCPCS: 87635

== ENCOUNTER → 2019-08-05 15:12 | Outpatient (CLI) | payer MEDICARE, OTHER, SELFPAY ==
--- NOTE | 2019-08-10 10:07 | PM.PFT.1 ---
Pulmonary Function Test Referral & Results Date Patient Seen: 08/05/19 Requesting provider: Pete Worthy Results: The spirometry demonstrates an FVC of 1.27 L which is 47% of predicted. The FEV1 was measured at 0.53 L which is 26% of predicted. The FEV1/FVC ratio was 42 which is 54% of predicted. Following the administration of bronchodilator there was no appreciable change. Lung volumes show an SVC of 1.47 L which is 57% of predicted. The diffusing capacity was measured at 7.1 to which is 37% of predicted. No hemoglobin value was provided, so no correction for potential anemia could be made, if appropriate. The maximum voluntary ventilation was severely reduced Interpretation: This study demonstrates severe obstructive lung disease with FEV1 of only 530 cc. There is no evidence of benefit following bronchodilator administration Patient also with moderate restrictive lung disease based on reduction SVC Patient also with severe reduction in diffusing capacity Compared to PFTs performed in August 2011, current study is essentially unchanged
== END ==
PROVIDERS: Family Provider Internal Medicine; PCP Internal Medicine; Referring Provider Internal Medicine; Visit Provider Internal Medicine
DX: J44.9 Chronic obstructive pulmonary disease, unspecified (principal); Z87.891 Personal history of nicotine dependence
CPT/HCPCS: 94060; 94726; 94729

== ENCOUNTER → 2020-03-12 17:12 | Outpatient (CLI) | payer MEDICARE, OTHER, SELFPAY ==
[2020-03-12 17:31] LABS: Add Manual Diff / Slide Review NO; Basophils Absolute Auto 100 /uL (0-100); Basophils Percent Auto 0.8 % (0-2); Eosinophils Absolute Auto 400 /uL (0-450); Eosinophils Percent Auto 3.4 % (2-4); Hematocrit 35.5 % (36-46); Hemoglobin 11.6 g/dL (12.0-16.0); Lymphocytes Absolute Auto 2500 /uL (1100-4500); Lymphocytes Percent Auto 22.5 % (25-40); Mean Corpuscular HGB Conc 32.7 % (30-36); Mean Corpuscular Volume 97.6 fL (80-100); Monocytes Absolute Auto 900 /uL (0-900); Neutrophils Absolute Auto 7300 /uL (1500-7000); Neutrophils Percent Auto 65.3 % (50-75); Platelet Count 229 X10^3/uL (150-400); Red Blood Cell Count 3.63 X10^6/uL (4.0-5.2); Red Cell Distribution Width 13.3 % (11.6-14.8); White Blood Cell Count 11.1 X10^3/uL (4.5-11.0)
[2020-03-12 17:46] LABS: Alanine Aminotransferase 29 IU/L (<35); Albumin 4.5 g/dL (3.5-5.0); Albumin Globulin Ratio 1.4 (1.0-2.8); Alkaline Phosphatase 83 U/L (38-126); Aspartate Aminotransferase 29 IU/L (14-36); BUN Creatinine Ratio 28.9 (6-22); Bilirubin Total 0.2 mg/dL (0.2-1.3); Blood Urea Nitrogen 37 mg/dL (7-17); Calcium 9.8 mg/dL (8.4-10.2); Carbon Dioxide 36 mmol/L (22-32); Chloride 97 mmol/L (98-107); Estimated Glomerular Filt Rate 41.7 mL/min (>60); Globulin 3.2 g/dL (1.7-4.1); Glucose 183 mg/dL (80-110); HEMOLYSIS < 15 (0-50); Sodium 136 mmol/L (137-145); Total Protein 7.7 g/dL (6.3-8.2)
[2020-03-12 18:17] LABS: Thyroid Stimulating Hormone 1.49 uIU/mL (0.47-4.68)
== END ==
PROVIDERS: Family Provider Internal Medicine; PCP Internal Medicine; Referring Provider Internal Medicine; Visit Provider Internal Medicine
DX: E03.9 Hypothyroidism, unspecified (principal); E11.8 Type 2 diabetes mellitus with unspecified complications; I10 Essential (primary) hypertension; I27.20 Pulmonary hypertension, unspecified; I50.42 Chronic combined systolic (congestive) and diastolic (congestive) heart failure; N18.2 Chronic kidney disease, stage 2 (mild)
CPT/HCPCS: 36415; 80053; 83036; 84439; 84443; 85025

== ENCOUNTER 2020-08-20 16:22 | Emergency (ER) | payer MEDICARE, OTHER, SELFPAY ==
[2020-08-20] VITALS (11 sets, daily range): BP systolic 116–150; BP diastolic 57–65; PULSE 59–73; RESP 22–28; TEMP 36.8; O2SAT 93–99
--- NOTE | 2020-08-20 16:29 | DI.RAD.S_ITS ---
PROCEDURE: XR CHEST 1V INDICATIONS: chest pain TECHNIQUE: One view of the chest was acquired. COMPARISON: [facility], CR, XR CHEST 1V, 11/11/2017, 19:02. FINDINGS: Surgical changes and devices: None. Lungs and pleura: There is trace blunting of the costophrenic angles, unchanged. No consolidations. Mediastinum: Mediastinal contours appear normal. Heart size is normal. Bones and chest wall: No suspicious bony lesions. Overlying soft tissues appear unremarkable. IMPRESSION: Trace costophrenic angle blunting suggestive of scarring. Dictated by: Isela Oliva M.D. on 08/20/2020 at 16:52 Approved by: Isela Oliva M.D. on 08/20/2020 at 16:52
[2020-08-20 17:17] LABS: Add Manual Diff / Slide Review NO; Basophils Absolute Auto 100 /uL (0-100); Basophils Percent Auto 0.7 % (0-2); Eosinophils Absolute Auto 200 /uL (0-450); Eosinophils Percent Auto 1.2 % (2-4); Hemoglobin 11.7 g/dL (12.0-16.0); Lymphocytes Absolute Auto 1800 /uL (1100-4500); Mean Corpuscular HGB Conc 32.6 % (30-36); Mean Corpuscular Hemoglobin 31.7 PG (26-34); Mean Corpuscular Volume 97.2 fL (80-100); Monocytes Absolute Auto 800 /uL (0-900); Monocytes Percent Auto 5.8 % (3-14); Neutrophils Absolute Auto 11100 /uL (1500-7000); Neutrophils Percent Auto 79.3 % (50-75); Platelet Count 251 X10^3/uL (150-400); Red Cell Distribution Width 13.5 % (11.6-14.8)
--- NOTE | 2020-08-20 17:52 | PC.NURSE ---
pt wanted to go to the restroom, wanted to walk, pt used her portable O2, pt spouse escorted her. pt back to the bed and pulse ox 76%, pt sat on edge of bed and recovered, sitting on bedside with 3L and she is 97%.
[2020-08-20 17:53] LABS: COVID19 - ADMIT (NP swab/PCR) Negative (Negative)
--- NOTE | 2020-08-20 18:03 | PC.NURSE ---
pt is tight throughout both lungs, has slight bit more movement in left lower lobe.
[2020-08-20 18:24] LABS: Alanine Aminotransferase 35 IU/L (<35); Albumin 4.6 g/dL (3.5-5.0); Albumin Globulin Ratio 1.3 (1.0-2.8); Alkaline Phosphatase 88 U/L (38-126); Aspartate Aminotransferase 37 IU/L (14-36); BUN Creatinine Ratio 29.1 (6-22); Bilirubin Total 0.4 mg/dL (0.2-1.3); Blood Urea Nitrogen 41 mg/dL (7-17); Carbon Dioxide 33 mmol/L (22-32); Chloride 93 mmol/L (98-107); Creatine Kinase 143 U/L (30-135); Estimated Glomerular Filt Rate 37.2 mL/min (>60); Globulin 3.5 g/dL (1.7-4.1); Glucose 214 mg/dL (80-110); HEMOLYSIS < 15 (0-50); Lipase 267 U/L (23-300); Magnesium 1.9 mg/dL (1.6-2.3); Sodium 135 mmol/L (137-145); Total Protein 8.1 g/dL (6.3-8.2)
[2020-08-20 18:35] LABS: NT-proBNP (BNP-Adult 18+) 113 pg/mL (<125); Troponin I < 0.012 ng/mL (0.01-0.034)
[2020-08-20 18:39] LABS: CKMB % Relative Index 1.7 % (1.5-5.0); Creatine Kinase MB 2.44 ng/mL (<2.37)
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
[2020-08-20] MEDS: levoFLOXacin 750 MG/150 ML PIGGYBACK 100 MG IV (19:39)
[2020-08-20] MEDS: FUROSEMIDE 100 MG/10 ML VIAL 60 MG IV (19:44)
[2020-08-20] MEDS: methylPREDNISolone 125 MG/2 ML VIAL IV (19:45)
== END 2020-08-20 21:25 | disposition home or self-care (01) ==
PROVIDERS: Emergency Medicine; Emergency Provider Emergency Medicine; Family Provider Internal Medicine; PCP Internal Medicine
DX: J44.9 Chronic obstructive pulmonary disease, unspecified (principal); R06.02 Shortness of breath; R06.00 Dyspnea, unspecified; R05 Cough; Z20.822 Contact with and (suspected) exposure to COVID-19
CPT/HCPCS: 36415; 71045; 80053; 82550; 82553; 83690; 83735; 83880; 84484; 85025; 87635; 93005; 96365; 96366; 96375; 99285; C9803; J1940; J1956; J2930

== ENCOUNTER → 2020-08-28 15:20 | Outpatient (CLI) | payer MEDICARE, OTHER, SELFPAY ==
[2020-08-28 16:31] LABS: Add Manual Diff / Slide Review NO; Basophils Absolute Auto 100 /uL (0-100); Basophils Percent Auto 0.7 % (0-2); Eosinophils Absolute Auto 400 /uL (0-450); Eosinophils Percent Auto 2.8 % (2-4); Hematocrit 37.7 % (36-46); Hemoglobin 12.3 g/dL (12.0-16.0); Lymphocytes Absolute Auto 2200 /uL (1100-4500); Lymphocytes Percent Auto 14.4 % (25-40); Mean Corpuscular HGB Conc 32.7 % (30-36); Mean Corpuscular Hemoglobin 31.9 PG (26-34); Mean Corpuscular Volume 97.5 fL (80-100); Monocytes Absolute Auto 1000 /uL (0-900); Monocytes Percent Auto 6.7 % (3-14); Neutrophils Absolute Auto 11700 /uL (1500-7000); Neutrophils Percent Auto 75.4 % (50-75); Platelet Count 251 X10^3/uL (150-400); Red Blood Cell Count 3.87 X10^6/uL (4.0-5.2); Red Cell Distribution Width 13.7 % (11.6-14.8); White Blood Cell Count 15.5 X10^3/uL (4.5-11.0)
[2020-08-28 17:25] LABS: Alanine Aminotransferase 37 IU/L (<35); Albumin 4.3 g/dL (3.5-5.0); Albumin Globulin Ratio 1.5 (1.0-2.8); Alkaline Phosphatase 77 U/L (38-126); Amylase 71 U/L (30-110); Aspartate Aminotransferase 34 IU/L (14-36); BUN Creatinine Ratio 34.6 (6-22); Bilirubin Total 0.4 mg/dL (0.2-1.3); Blood Urea Nitrogen 47 mg/dL (7-17); Calcium 9.9 mg/dL (8.4-10.2); Carbon Dioxide 32 mmol/L (22-32); Chloride 92 mmol/L (98-107); Estimated Glomerular Filt Rate 38.8 mL/min (>60); Globulin 2.9 g/dL (1.7-4.1); Glucose 227 mg/dL (80-110); HEMOLYSIS < 15 (0-50); Lipase 389 U/L (23-300); Potassium 4.1 mmol/L (3.4-5.1); Sodium 132 mmol/L (137-145); Total Protein 7.2 g/dL (6.3-8.2)
== END ==
PROVIDERS: Family Provider Internal Medicine; PCP Internal Medicine; Referring Provider Internal Medicine; Visit Provider Internal Medicine
DX: J44.9 Chronic obstructive pulmonary disease, unspecified (principal); R10.9 Unspecified abdominal pain
CPT/HCPCS: 36415; 80053; 82150; 83690; 85025

== ENCOUNTER → 2020-09-04 17:54 | Outpatient (CLI) | payer MEDICARE, OTHER, SELFPAY | PROVIDERS: Family Provider Internal Medicine; PCP Internal Medicine; Visit Provider Physician Assistant | DX: J31.2 Chronic pharyngitis (principal) | CPT/HCPCS: 87070 ==

== ENCOUNTER → 2020-09-13 12:02 | Outpatient (CLI) | payer MEDICARE, OTHER, SELFPAY ==
[2020-09-13 13:15] LABS: Cholesterol 213 mg/dL (140-199); HDL Cholesterol 65 mg/dL (40-60); LDL Cholesterol Calculated 106 mg/dL (<100); Triglycerides 210 mg/dL (35-150)
[2020-09-13 13:17] LABS: Alanine Aminotransferase 32 IU/L (<35); Albumin Globulin Ratio 1.3 (1.0-2.8); Alkaline Phosphatase 73 U/L (38-126); Aspartate Aminotransferase 29 IU/L (14-36); BUN Creatinine Ratio 25.2 (6-22); Bilirubin Total 0.5 mg/dL (0.2-1.3); Blood Urea Nitrogen 31 mg/dL (7-17); Calcium 9.4 mg/dL (8.4-10.2); Carbon Dioxide 32 mmol/L (22-32); Chloride 94 mmol/L (98-107); Estimated Glomerular Filt Rate 43.6 mL/min (>60); Glucose 237 mg/dL (80-110); HEMOLYSIS < 15 (0-50); Magnesium 1.9 mg/dL (1.6-2.3); Potassium 4.3 mmol/L (3.4-5.1); Sodium 132 mmol/L (137-145)
== END ==
PROVIDERS: Internal Medicine Cardiovascular Disease; Family Provider Internal Medicine; PCP Internal Medicine; Referring Provider Internal Medicine; Visit Provider Internal Medicine
DX: I10 Essential (primary) hypertension (principal); E78.5 Hyperlipidemia, unspecified; E11.8 Type 2 diabetes mellitus with unspecified complications; I27.81 Cor pulmonale (chronic); N18.2 Chronic kidney disease, stage 2 (mild); R60.9 Edema, unspecified; I27.20 Pulmonary hypertension, unspecified; I50.42 Chronic combined systolic (congestive) and diastolic (congestive) heart failure
CPT/HCPCS: 36415; 80053; 80061; 83735

== ENCOUNTER → 2020-09-17 12:27 | Outpatient (CLI) | payer MEDICARE, OTHER, SELFPAY ==
--- NOTE | 2020-09-17 | DI.ECHO.S_ITS ---
[place] [facility]---------+ [facility] +---------+ : : [address] : [address] [address] : : : : [phone] : : : : Phone: [phone]---------+ Echocardiogram Report + + :Name: AV CAIN Study Date: 09/17/2020 Height: 60 in : :[facility] : Weight: 221 lb : : Gender: Female BSA: 1.9 m2 : :: 1955 Age: 65 yrs BP: 188/84 mmHg: :Reason For Study: PHTN : :Ordering Physician: Cecil : :Candace Conway Performed By: Reji Godfrey : :Referring: CECIL CONWAY : + + Interpretation Summary The left ventricle is normal in size and wall thickness. The ejection fraction is estimated to be 60-65%. The right ventricle is normal in size and function. There is mild to moderate tricuspid regurgitation. Compared to the prior echo exam, there has been no change in TR severity. The right ventricular systolic pressure is estimated to be at least 45 mmHg based on an estimated right atrial pressure of 3 mm Hg. Previous pulmonary artery systolic pressure was about 66.4 mmHg. Compared to the prior echo exam, there has been a decrease in the severity of pulmonary hypertension. Procedure: A two-dimensional transthoracic echocardiogram with color flow and Doppler was performed. The study quality was technically adequate. Comparison is made with the echocardiogram of 01/10/2019. The patient was in sinus rhythm with heart rates between 55-63 bpm during the exam. Left Ventricle: The left ventricle is normal in size and wall thickness. There is no thrombus. Left ventricular systolic function is normal. The ejection fraction is estimated to be 60-65%. There are no focal wall motion abnormalities. Diastolic parameters suggest a relaxation abnormality of the left ventricle, consistent with probable normal filling pressures. Right Ventricle: The right ventricle is normal in size and function. Atria: The left atrial size is normal. The right atrium is mildly dilated. There has been no significant change since the previous study. There is no Doppler evidence for an interatrial shunt. Mitral Valve: The mitral valve is normal in structure and function. There is trace mitral regurgitation. Aortic Valve: The aortic valve is grossly normal. The aortic valve is not well visualized. There is no aortic valve stenosis. No aortic regurgitation is present. Tricuspid Valve: The tricuspid valve is normal. There is mild to moderate tricuspid regurgitation. The right ventricular systolic pressure is estimated to be at least 45 mmHg based on an estimated right atrial pressure of 3 mm Hg. Compared to the prior echo exam, there has been no change in TR severity. Compared to the prior echo exam, there has been a decrease in the severity of pulmonary hypertension. Pulmonic Valve: The pulmonic valve is not well visualized. Great Vessels: The aortic root is normal size. The ascending aorta could not be visualized. The IVC is of normal diameter and collapses greater than 50% with a sniff. This suggests a low right atrial pressure of 3 mm Hg. Pericardium/ Pleura There is no pericardial effusion. There is no pleural effusion. MMode/2D Measurements & Calculations LVIDd: 5.3 cm LVOT diam: 2.0 cm LVIDs: 3.8 cm Ao root diam: 3.1 cm FS: 28.9 % IVSd: 0.84 cm LVPWd: 0.77 cm LV green. diameter/BSA (cm/m^2): 2.7 LV sys. diameter/BSA (cm/m^2): 2.0 LA A2 area: 16.6 cm2 RA long axis: 4.9 cm LA A4 area: 17.7 cm2 IVC diam: 1.7 cm LA length (vol): 4.8 cm LA vol: 51.7 ml LA vol index: 26.6 ml/m2 LVLs ap4: 5.7 cm LVLd ap2: 7.3 cm LVLs ap2: 6.6 cm TAPSE_phl: 2.9 cm Doppler Measurements & Calculations Ao V2 max: 164.0 cm/sec LVOT Max Mike: 149.0 cm/sec Ao V2 mean: 101.0 cm/sec LV V1 max P.9 mmHg Ao max P.0 mmHg LV V1 VTI: 32.3 cm Ao mean P.0 mmHg HEIKE(I,D): 3.2 cm2 Ao V2 VTI: 31.7 cm HEIKE(V,D): 2.9 cm2 sev ratio: 1.0 HEIKE indexed to BSA (cm^2/m^2): 1.6 MV E max mike: 82.6 cm/sec TR max mike: 322.0 cm/sec MV A max mike: 88.8 cm/sec TR max P.5 mmHg MV E/A: 0.93 PA V2 max: 151.0 cm/sec Med Peak E' Mike: 6.7 cm/sec PA V2 mean: 98.7 cm/sec E/E' med: 12.4 PA mean P.0 mmHg Lat Peak E' Mike: 10.1 cm/sec PA pr(Accel): 57.4 mmHg E/E' lat: 8.2 E/e' average: 10.3 SV(LVOT): 101.5 ml AV VR_phl: 0.91 HEIKE(VTI)/BSA_phl: 1.6 MV P1/2t-pr_phl: 72.0 msec Reading Physician:02:29 PM
== END ==
PROVIDERS: Family Provider Internal Medicine; PCP Internal Medicine; Referring Provider Internal Medicine Cardiovascular Disease; Visit Provider Internal Medicine Cardiovascular Disease
DX: I27.81 Cor pulmonale (chronic) (principal); I07.1 Rheumatic tricuspid insufficiency
CPT/HCPCS: 93306

== ENCOUNTER → 2020-09-19 14:00 | Outpatient (CLI) | payer MEDICARE, OTHER, SELFPAY ==
--- NOTE | 2020-09-19 14:01 | DI.CT.S_ITS ---
PROCEDURE: CT ABDOMEN PELVIS W CON INDICATIONS: epigastric pain after eating TECHNIQUE: After the administration of oral and intravenous contrast, axial sections were acquired from the lung bases to the pubic symphysis. Coronal and sagittal reformats were performed. For radiation dose reduction, the following was used: automated exposure control, adjustment of mA and/or kV according to patient size. COMPARISON:[facility], CT, CT ABDOMEN PELVIS W CON, 11/11/2017, 20:39. FINDINGS: Image quality: Excellent. Lung bases: Unremarkable. Heart: No significant findings. ABDOMEN: Liver: Mild hepatic steatosis. Gallbladder: Unremarkable. Biliary ducts: Unremarkable. Pancreas: Normal size. No ductal dilatation. Occasional scattered parenchymal cysts too small to characterize, similar in size and number compared to the prior study.. Spleen: Unremarkable. Adrenal Glands: Unremarkable. Kidneys and Ureters: Unremarkable. Stomach and Bowel: The stomach is markedly distended with ingested material and there is an air-fluid level anteriorly. The duodenal sweep is normal caliber. Small bowel loops are normal without dilatation and the ileum was opacified with oral contrast. There is marked redundancy of the proximal colon loops in gaseous distension of the anteriorly located cecum. The appendix was not visible. The descending colon and rectum are decompressed. Peritoneum: No intraperitoneal inflammation or abnormal intraperitoneal fluid. No free air. Ventral Wall: No hernia. Abdominal Nodes: No retroperitoneal or mesenteric adenopathy by size criteria. Moderate abdominal aortic atherosclerotic calcification. Vessels: Aorta and inferior vena cava are normal in size. PELVIS: Pelvic Organs: Unremarkable. Partially calcified posterior fundal uterine fibroid. Bladder: Unremarkable. Pelvic Nodes: No enlarged lymph nodes. Miscellaneous: No inguinal hernias are seen. Bones:. There are pars defects at L5 and grade 1 anterolisthesis. Severe disc height loss at this level. No significant progression since the prior study. IMPRESSION: 1. Gastric distention. There may have been recently ingested material, this may be evidence of gastroparesis, less likely a outlet obstruction due to appropriate passage of oral contrast. 2. Mild hepatic steatosis. 3. Uterine fibroid. 4. Stable pancreatic morphology. Occult pancreatitis is not excluded by this exam. Correlate with labs. Tiny unchanged cystic structures may be small side branch IPMNs. Dictated by: Dixie Acosta M.D. on 09/19/2020 at 15:36 Approved by: Dixie Acosta M.D. on 09/19/2020 at 15:50
== END ==
PROVIDERS: Family Provider Internal Medicine; PCP Internal Medicine; Referring Provider Internal Medicine; Visit Provider Internal Medicine
DX: R10.13 Epigastric pain (principal); K76.0 Fatty (change of) liver, not elsewhere classified; K63.89 Other specified diseases of intestine; D25.9 Leiomyoma of uterus, unspecified
CPT/HCPCS: 74177; Q9967

== ENCOUNTER → 2021-01-24 16:03 | Outpatient (CLI) | payer MEDICARE, OTHER, SELFPAY ==
[2021-01-24 18:44] LABS: BUN Creatinine Ratio 32.4 (6-22); Blood Urea Nitrogen 46 mg/dL (7-17); Calcium 10.2 mg/dL (8.4-10.2); Carbon Dioxide 35 mmol/L (22-32); Chloride 95 mmol/L (98-107); Estimated Glomerular Filt Rate 36.9 mL/min (>60); Glucose 252 mg/dL (80-110); HEMOLYSIS < 15 (0-50); Potassium 4.2 mmol/L (3.4-5.1); Sodium 138 mmol/L (137-145)
== END ==
PROVIDERS: Family Provider Internal Medicine; PCP Internal Medicine; Referring Provider Internal Medicine Cardiovascular Disease; Visit Provider Internal Medicine Cardiovascular Disease
DX: I27.81 Cor pulmonale (chronic) (principal)
CPT/HCPCS: 36415; 80048

== ENCOUNTER → 2021-09-05 13:30 | Outpatient (CLI) | payer MEDICARE, OTHER, SELFPAY ==
[2021-09-05 15:40] LABS: Alanine Aminotransferase 30 IU/L (<35); Albumin 4.2 g/dL (3.5-5.0); Albumin Globulin Ratio 1.6 (1.0-2.8); Alkaline Phosphatase 77 U/L (38-126); Aspartate Aminotransferase 29 IU/L (14-36); BUN Creatinine Ratio 32.4 (6-22); Bilirubin Total 0.3 mg/dL (0.2-1.3); Blood Urea Nitrogen 44 mg/dL (7-17); Calcium 9.1 mg/dL (8.4-10.2); Carbon Dioxide 34 mmol/L (22-32); Chloride 94 mmol/L (98-107); Cholesterol 239 mg/dL (140-199); Estimated Glomerular Filt Rate 42 mL/min (>60); Globulin 2.7 g/dL (1.7-4.1); Glucose 248 mg/dL (80-110); HDL Cholesterol 57 mg/dL (40-60); HEMOLYSIS < 15 (0-50); Hemoglobin A1C% w Est Avg Glu 9.5 % (4.0-6.0); LDL Cholesterol Calculated 135 mg/dL (<100); Potassium 4.4 mmol/L (3.4-5.1); Sodium 135 mmol/L (137-145); Total Protein 6.9 g/dL (6.3-8.2); Triglycerides 235 mg/dL (35-150)
[2021-09-05 16:08] LABS: Thyroid Stimulating Hormone 1.32 uIU/mL (0.47-4.68)
[2021-09-05 16:12] LABS: Creatinine Urine Random 85.5 mg/dL
[2021-09-05 16:15] LABS: Microalbumi Creatinin Ratio Ur 33.9 ug/mg CR (<30); Microalbumin Urine Random 2.9 mg/dL (0-1.6)
[2021-09-05 16:28] LABS: Vitamin D 25 Hydroxy (D3) 38.4 ng/mL (30.0-100.0)
== END ==
PROVIDERS: Family Provider Internal Medicine; PCP Internal Medicine; Referring Provider Internal Medicine; Visit Provider Internal Medicine
DX: E11.8 Type 2 diabetes mellitus with unspecified complications (principal); E55.9 Vitamin D deficiency, unspecified; E03.9 Hypothyroidism, unspecified; E78.5 Hyperlipidemia, unspecified; I10 Essential (primary) hypertension; I25.10 Atherosclerotic heart disease of native coronary artery without angina pectoris
CPT/HCPCS: 36415; 80053; 80061; 82043; 82306; 82570; 83036; 84439; 84443

== ENCOUNTER → 2021-12-23 16:18 | Outpatient (CLI) | payer MEDICARE, OTHER, SELFPAY ==
[2021-12-23 18:07] LABS: Alanine Aminotransferase 26 IU/L (<35); Albumin 4.3 g/dL (3.5-5.0); Albumin Globulin Ratio 1.2 (1.0-2.8); Alkaline Phosphatase 82 U/L (38-126); Aspartate Aminotransferase 26 IU/L (14-36); BUN Creatinine Ratio 29.9 (6-22); Bilirubin Total 0.4 mg/dL (0.2-1.3); Blood Urea Nitrogen 44 mg/dL (7-17); Calcium 9.3 mg/dL (8.4-10.2); Carbon Dioxide 34 mmol/L (22-32); Chloride 92 mmol/L (98-107); Estimated Glomerular Filt Rate 39 mL/min (>60); Globulin 3.7 g/dL (1.7-4.1); Glucose 161 mg/dL (80-110); HEMOLYSIS < 15 (0-50); Hemoglobin A1C% w Est Avg Glu 7.3 % (4.0-6.0); Potassium 3.8 mmol/L (3.4-5.1); Sodium 136 mmol/L (137-145)
== END ==
PROVIDERS: Family Provider Internal Medicine; PCP Internal Medicine; Referring Provider Internal Medicine; Visit Provider Internal Medicine
DX: E11.65 Type 2 diabetes mellitus with hyperglycemia (principal); I27.20 Pulmonary hypertension, unspecified; I27.81 Cor pulmonale (chronic); N18.31 Chronic kidney disease, stage 3a
CPT/HCPCS: 36415; 80053; 83036

== ENCOUNTER → 2022-03-20 13:11 | Outpatient (CLI) | payer MEDICARE, OTHER, SELFPAY ==
[2022-03-20 14:15] LABS: Hemoglobin A1C% w Est Avg Glu 7.6 % (4.0-6.0)
[2022-03-20 14:25] LABS: BUN Creatinine Ratio 30.1 (6-22); Blood Urea Nitrogen 40 mg/dL (7-17); Calcium 9.2 mg/dL (8.4-10.2); Carbon Dioxide 25 mmol/L (22-32); Chloride 99 mmol/L (98-107); Cholesterol 223 mg/dL (140-199); Estimated Glomerular Filt Rate 44 mL/min (>60); Glucose 205 mg/dL (80-110); HDL Cholesterol 56 mg/dL (40-60); HEMOLYSIS 22 (0-50); LDL Cholesterol Calculated 104 mg/dL (<100); Sodium 135 mmol/L (137-145); Triglycerides 316 mg/dL (35-150)
== END ==
PROVIDERS: Family Provider Internal Medicine; PCP Internal Medicine; Referring Provider Internal Medicine Cardiovascular Disease; Visit Provider Internal Medicine Cardiovascular Disease
DX: E11.65 Type 2 diabetes mellitus with hyperglycemia (principal); E78.5 Hyperlipidemia, unspecified
CPT/HCPCS: 36415; 80048; 80061; 83036

== ENCOUNTER → 2022-04-21 13:49 | Outpatient (CLI) | payer MEDICARE, OTHER, SELFPAY ==
--- NOTE | 2022-04-21 | DI.ECHO.S_ITS ---
[place] +---------+ [facility] +---------+ : : [address] : : : : [id number] : : : : Phone: [phone]+ Echocardiogram Report + + :Name: AV CAIN Study Date: 04/21/2022 Height: 60 in : :[facility] ReadingLocation: Weight: 208 lb : : Gender: Female BSA: 1.9 m2 : :: 1955 Age: 66 yrs BP: 124/72 mmHg: :Reason For Study: CHEST PAIN : :Ordering Physician: MAN, : :CECIL Performed By: LUCAS HAYES : :Referring: CECIL CONWAY : + + Interpretation Summary The left ventricle is normal in size and wall thickness. The ejection fraction is estimated to be 65-70%. The right ventricle is mildly dilated. The right ventricular systolic function is normal. There is mild to moderate tricuspid regurgitation. Compared to the prior echo exam, there has been no change in TR severity. The right ventricular systolic pressure is estimated to be at least 68 mmHg based on an estimated right atrial pressure of 3 mm Hg. Compared to the prior echo exam, there has been an increase in the severity of pulmonary hypertension. Previously about 45 mmHg. Procedure: A two-dimensional transthoracic echocardiogram with color flow and Doppler was performed. The study quality was technically adequate. Comparison is made with the echocardiogram of 09/17/2020. The patient was in 55-71 during the exam. The patient was in normal sinus rhythm during the exam. Left Ventricle: The left ventricle is normal in size and wall thickness. There is no thrombus. The ejection fraction is estimated to be 65-70%. There are no focal wall motion abnormalities. MV E/A: 1.0 Med Peak E' Mike: 8.2 cm/sec E/E' med: 9.5. Right Ventricle: The right ventricle is mildly dilated. The right ventricle appears to be hypertrophied. The right ventricular systolic function is normal. Atria: The left atrial size is normal. There has been no significant change since the previous study. The right atrium is mildly dilated. There has been no significant change since the previous study. There is no Doppler evidence for an interatrial shunt. Mitral Valve: The mitral valve is normal in structure and function. There is trace mitral regurgitation. Aortic Valve: The aortic valve is normal in structure and function. The aortic valve is trileaflet. There is no aortic valve stenosis. No aortic regurgitation is present. Tricuspid Valve: The tricuspid valve is normal. There is mild to moderate tricuspid regurgitation. The right ventricular systolic pressure is estimated to be at least 68 mmHg based on an estimated right atrial pressure of 3 mm Hg. Compared to the prior echo exam, there has been no change in TR severity. Compared to the prior echo exam, there has been an increase in the severity of pulmonary hypertension. Pulmonic Valve: The pulmonic valve is not well visualized. There is trace pulmonic regurgitation. Great Vessels: The aortic root is normal size. The ascending aorta is normal in size. The IVC is of normal diameter and collapses greater than 50% with a sniff. This suggests a low right atrial pressure of 3 mm Hg. Pericardium/ Pleura There is no pericardial effusion. There is no pleural effusion. MMode/2D Measurements & Calculations LVIDd: 4.7 cm LVOT diam: 1.9 cm LVIDs: 3.0 cm Ao root diam: 3.4 cm FS: 36.2 % asc Aorta Diam: 3.6 cm IVSd: 0.66 cm Ao Arch Diam (Prox Trans): 2.4 cm LVPWd: 0.90 cm LV green. diameter/BSA (cm/m^2): 2.5 LV sys. diameter/BSA (cm/m^2): 1.6 LA A2 area: 16.9 cm2 RA long axis: 5.2 cm LA A4 area: 17.5 cm2 RA area: 21.7 cm2 LA length (vol): 4.6 cm RA vol: 76.8 ml LA vol: 54.5 ml RA : 40.5 ml/m2 LA vol index: 28.7 ml/m2 IVC diam: 1.4 cm RVD1 (basal): 4.4 cm RVD2 (mid): 4.1 cm TAPSE: 2.2 cm Doppler Measurements & Calculations Ao V2 max: 172.1 cm/sec LVOT Max Mike: 154.8 cm/sec Ao V2 mean: 120.8 cm/sec LV V1 max P.6 mmHg Ao max P.8 mmHg LV V1 VTI: 31.4 cm Ao mean P.4 mmHg HEIKE(I,D): 2.5 cm2 Ao V2 VTI: 37.2 cm HEIKE(V,D): 2.7 cm2 sev ratio: 0.84 HEIKE indexed to BSA (cm^2/m^2): 1.3 MV E max mike: 77.4 cm/sec TR max mike: 402.4 cm/sec MV A max mike: 75.5 cm/sec TR max P.8 mmHg MV E/A: 1.0 PA V2 max: 136.6 cm/sec Med Peak E' Mike: 8.2 cm/sec PA V2 mean: 92.0 cm/sec E/E' med: 9.5 PA mean P.8 mmHg Lat Peak E' Mike: 9.9 cm/sec PA pr(Accel): 55.0 mmHg E/E' lat: 7.8 E/e' average: 8.7 MV dec time: 0.25 sec SV(LVOT): 92.5 ml Reading Physician:05:17 PM
== END ==
PROVIDERS: Family Provider Internal Medicine; PCP Internal Medicine; Referring Provider Internal Medicine Cardiovascular Disease; Visit Provider Internal Medicine Cardiovascular Disease
DX: I27.20 Pulmonary hypertension, unspecified (principal); I07.1 Rheumatic tricuspid insufficiency
CPT/HCPCS: 93306

== ENCOUNTER → 2022-05-13 14:59 | Outpatient (CLI) | payer MEDICARE, OTHER, SELFPAY ==
[2022-05-13 15:42] LABS: Alanine Aminotransferase 37 IU/L (<35); Albumin 4.6 g/dL (3.5-5.0); Albumin Globulin Ratio 1.3 (1.0-2.8); Alkaline Phosphatase 90 U/L (38-126); Aspartate Aminotransferase 33 IU/L (14-36); BUN Creatinine Ratio 21.5 (6-22); Bilirubin Total 0.4 mg/dL (0.2-1.3); Blood Urea Nitrogen 53 mg/dL (7-17); Calcium 9.5 mg/dL (8.4-10.2); Carbon Dioxide 34 mmol/L (22-32); Chloride 93 mmol/L (98-107); Estimated Glomerular Filt Rate 21 mL/min (>60); Globulin 3.6 g/dL (1.7-4.1); Glucose 254 mg/dL (80-110); HEMOLYSIS < 15 (0-50); Magnesium 2.3 mg/dL (1.6-2.3); Potassium 4.1 mmol/L (3.4-5.1); Sodium 134 mmol/L (137-145); Total Protein 8.2 g/dL (6.3-8.2)
[2022-05-13 16:13] LABS: Thyroid Stimulating Hormone 1.79 uIU/mL (0.47-4.68)
== END ==
PROVIDERS: Family Provider Internal Medicine; PCP Internal Medicine; Referring Provider Internal Medicine Cardiovascular Disease; Visit Provider Internal Medicine Cardiovascular Disease
DX: I10 Essential (primary) hypertension (principal); R94.31 Abnormal electrocardiogram [ECG] [EKG]; E78.5 Hyperlipidemia, unspecified
CPT/HCPCS: 36415; 80053; 83735; 84443

== ENCOUNTER → 2022-05-28 16:27 | Outpatient (CLI) | payer MEDICARE, OTHER, SELFPAY ==
[2022-05-28 18:42] LABS: BUN Creatinine Ratio 24.9 (6-22); Blood Urea Nitrogen 42 mg/dL (7-17); Calcium 9.7 mg/dL (8.4-10.2); Carbon Dioxide 33 mmol/L (22-32); Chloride 93 mmol/L (98-107); Estimated Glomerular Filt Rate 33 mL/min (>60); Glucose 214 mg/dL (80-110); HEMOLYSIS < 15 (0-50); Potassium 4.3 mmol/L (3.4-5.1); Sodium 135 mmol/L (137-145)
== END ==
PROVIDERS: Family Provider Internal Medicine; PCP Internal Medicine; Referring Provider Internal Medicine Cardiovascular Disease; Visit Provider Internal Medicine Cardiovascular Disease
DX: I27.20 Pulmonary hypertension, unspecified (principal); I10 Essential (primary) hypertension
CPT/HCPCS: 36415; 80048

== ENCOUNTER → 2022-07-04 16:05 | Outpatient (CLI) | payer MEDICARE, OTHER, SELFPAY ==
[2022-07-04 18:08] LABS: BUN Creatinine Ratio 22.7 (6-22); Blood Urea Nitrogen 37 mg/dL (7-17); Calcium 9.5 mg/dL (8.4-10.2); Carbon Dioxide 33 mmol/L (22-32); Chloride 92 mmol/L (98-107); Estimated Glomerular Filt Rate 34 mL/min (>60); Glucose 196 mg/dL (80-110); HEMOLYSIS < 15 (0-50); Potassium 4.1 mmol/L (3.4-5.1); Sodium 134 mmol/L (137-145)
[2022-07-04 18:22] LABS: Free T4, Direct Thyroxine 1.51 ng/dL (0.78-2.19)
[2022-07-06 08:15] LABS: Labcorp Hemoglobin (Hb) A1c 7.6 % (4.8-5.6)
== END ==
PROVIDERS: Family Provider Internal Medicine; PCP Internal Medicine; Referring Provider Internal Medicine; Visit Provider Internal Medicine
DX: E03.9 Hypothyroidism, unspecified; I27.20 Pulmonary hypertension, unspecified; N18.31 Chronic kidney disease, stage 3a; E11.9 Type 2 diabetes mellitus without complications
CPT/HCPCS: 36415; 80048; 83036; 84439; 84443

== ENCOUNTER → 2023-01-01 16:05 | Outpatient (CLI) | payer MEDICARE, OTHER, SELFPAY ==
--- NOTE | 2023-01-01 16:07 | DI.ECHO.S_ITS ---
[place] +---------+ [facility] +---------+ : : [address] : : : : [id number] : : : : Phone: [phone]+ Echocardiogram Report + + :Name: AV CAIN Study Date: 01/01/2023 Height: 60 in : :[facility] ReadingLocation: Weight: 201 lb : : Gender: Female BSA: 1.9 m2 : :: 1955 Age: 67 yrs BP: 181/78 mmHg: :Reason For Study: Pulmonary Hypertension : :Ordering Physician: MAN, : :CECIL Performed By: Bebe Bingham : :Referring: CECIL CONWAY : + + Interpretation Summary 1) Normal left ventricular size, wall motion, and systolic function (EF 60- 65%). 2) Normal right ventricular size and function. 3) No significant valvular abnormalities. 4) The right ventricular systolic pressure is estimated to be at least 54 mmHg based on an estimated right atrial pressure of 15 mm Hg. 5) Compared to the Echo done 04/21/2022, systolic PA pressure has decreased from 68mmHg to 54mmHg. Procedure: A two-dimensional transthoracic echocardiogram with color flow and Doppler was performed. The study quality was technically difficult. Most of the acoustic windows were suboptimal, but the best imaging was obtained from the apical window. Comparison is made with the echocardiogram of 04/21/2022. The patient was in normal sinus rhythm during the exam. Left Ventricle: The left ventricle is normal in size. The ejection fraction is estimated to be 60-65%. Left ventricular systolic function is normal. Diastolic parameters suggest a relaxation abnormality of the left ventricle, consistent with probable normal filling pressures. Right Ventricle: The right ventricle is normal in size and function. Atria: The left atrial size is normal. The right atrium is mild to moderately dilated. There is no Doppler evidence for an interatrial shunt. Mitral Valve: The mitral valve is normal. There is no mitral valve stenosis. There is trace mitral regurgitation. Aortic Valve: The aortic valve is not well visualized. There is no aortic valve stenosis. The peak aortic velocity is 2.08 m/sec. The aortic valve mean gradient is 9 mmHg. No aortic regurgitation is present. Tricuspid Valve: The tricuspid valve is not well visualized. There is no tricuspid stenosis. There is mild tricuspid regurgitation. The right ventricular systolic pressure is estimated to be at least 54 mmHg based on an estimated right atrial pressure of 15 mm Hg. Pulmonic Valve: The pulmonic valve is not well visualized. There is no pulmonic valvular stenosis. There is trace pulmonic regurgitation. Great Vessels: The aortic root is not well visualized. The ascending aorta is normal in size. The pulmonary artery is not well visualized, but is probably normal size. The IVC is dilated (diameter is greater than 2.1 cm) and it collapses less than 50% with a sniff. This suggests a high right atrial pressure of 15 mm Hg. Pericardium/ Pleura There is no pericardial effusion. There is no pleural effusion. MMode/2D Measurements & Calculations asc Aorta Diam: 3.0 cm LA A2 area: 15.5 cm2 LA A4 area: 14.0 cm2 LA length (vol): 5.0 cm LA vol: 36.9 ml LA vol index: 19.7 ml/m2 RA long axis: 5.1 cm RVD1 (basal): 4.0 cm RA area: 18.4 cm2 RA vol: 56.5 ml RA : 30.2 ml/m2 IVC diam: 2.4 cm LVLs ap4: 4.7 cm LVLd ap2: 6.8 cm LVLs ap2: 5.4 cm TAPSE_phl: 3.0 cm Doppler Measurements & Calculations Ao V2 max: 203.0 cm/sec LVOT Max Mike: 150.3 cm/sec Ao V2 mean: 128.3 cm/sec LV V1 max P.0 mmHg Ao max P.0 mmHg LV V1 VTI: 31.0 cm Ao mean P.0 mmHg sev ratio: 0.68 Ao V2 VTI: 45.5 cm MV E max mike: 82.5 cm/sec TR max mike: 311.0 cm/sec MV A max mike: 85.4 cm/sec TR max P.7 mmHg MV E/A: 0.97 Med Peak E' Mike: 8.8 cm/sec E/E' med: 9.4 Lat Peak E' Mike: 10.2 cm/sec E/E' lat: 8.1 E/e' average: 8.7 MV dec time: 0.23 sec AV VR_phl: 0.74 Reading Physician:07:06 PM
== END ==
PROVIDERS: Family Provider Internal Medicine; PCP Internal Medicine; Referring Provider Internal Medicine Cardiovascular Disease; Visit Provider Internal Medicine Cardiovascular Disease
DX: I07.1 Rheumatic tricuspid insufficiency (principal); I27.20 Pulmonary hypertension, unspecified; I27.81 Cor pulmonale (chronic)
CPT/HCPCS: 93306

== ENCOUNTER → 2023-01-06 11:35 | Outpatient (CLI) | payer MEDICARE, OTHER, SELFPAY ==
[2023-01-06 13:33] LABS: Alanine Aminotransferase 30 IU/L (<35); Albumin 4.3 g/dL (3.5-5.0); Albumin Globulin Ratio 1.2 (1.0-2.8); Alkaline Phosphatase 76 U/L (38-126); Aspartate Aminotransferase 31 IU/L (14-36); Bilirubin Total 0.6 mg/dL (0.2-1.3); Blood Urea Nitrogen 38 mg/dL (7-17); Calcium 9.8 mg/dL (8.4-10.2); Carbon Dioxide 33 mmol/L (22-32); Chloride 93 mmol/L (98-107); Cholesterol 182 mg/dL (140-199); Estimated Glomerular Filt Rate 40 mL/min (>60); Globulin 3.5 g/dL (1.7-4.1); Glucose 160 mg/dL (80-110); HDL Cholesterol 68 mg/dL (40-60); HEMOLYSIS 19 (0-50); LDL Cholesterol Calculated 87 mg/dL (<100); Potassium 4.5 mmol/L (3.4-5.1); Sodium 133 mmol/L (137-145); Total Protein 7.8 g/dL (6.3-8.2); Triglycerides 136 mg/dL (35-150)
[2023-01-06 13:58] LABS: Free T4, Direct Thyroxine 1.31 ng/dL (0.78-2.19)
[2023-01-06 14:12] LABS: Thyroid Stimulating Hormone 1.86 uIU/mL (0.47-4.68)
[2023-01-06 15:44] LABS: Hemoglobin A1C% w Est Avg Glu 7.4 % (4.0-6.0)
== END ==
PROVIDERS: Family Provider Internal Medicine; PCP Internal Medicine; Referring Provider Internal Medicine Cardiovascular Disease; Visit Provider Internal Medicine Cardiovascular Disease
DX: E11.9 Type 2 diabetes mellitus without complications (principal); E03.9 Hypothyroidism, unspecified; E78.5 Hyperlipidemia, unspecified
CPT/HCPCS: 36415; 80053; 80061; 83036; 84439; 84443

== ENCOUNTER → 2023-06-30 12:46 | Outpatient (CLI) | payer MEDICARE, OTHER, SELFPAY ==
[2023-06-30 13:30] LABS: Hemoglobin A1C% w Est Avg Glu 7.3 % (4.0-6.0)
[2023-06-30 13:42] LABS: Alanine Aminotransferase 30 IU/L (<35); Albumin 4.6 g/dL (3.5-5.0); Albumin Globulin Ratio 1.6 (1.0-2.8); Alkaline Phosphatase 83 U/L (38-126); Aspartate Aminotransferase 27 IU/L (14-36); BUN Creatinine Ratio 29.3 (6-22); Bilirubin Total 0.6 mg/dL (0.2-1.3); Blood Urea Nitrogen 46 mg/dL (7-17); Calcium 9.3 mg/dL (8.4-10.2); Carbon Dioxide 32 mmol/L (22-32); Chloride 96 mmol/L (98-107); Cholesterol 194 mg/dL (140-199); Estimated Glomerular Filt Rate 35 mL/min (>60); Globulin 2.9 g/dL (1.7-4.1); Glucose 199 mg/dL (80-110); HDL Cholesterol 56 mg/dL (40-60); HEMOLYSIS < 15 (0-50); LDL Cholesterol Calculated 103 mg/dL (<100); Potassium 4.3 mmol/L (3.4-5.1); Sodium 132 mmol/L (137-145); Total Protein 7.5 g/dL (6.3-8.2); Triglycerides 176 mg/dL (35-150)
[2023-06-30 13:51] LABS: Free T4, Direct Thyroxine 1.36 ng/dL (0.78-2.19)
[2023-06-30 14:04] LABS: Thyroid Stimulating Hormone 1.67 uIU/mL (0.47-4.68)
== END ==
LOC: LAB 12:47
PROVIDERS: Family Provider Internal Medicine; PCP Internal Medicine; Referring Provider Internal Medicine; Visit Provider Internal Medicine
DX: N18.31 Chronic kidney disease, stage 3a (principal); E11.9 Type 2 diabetes mellitus without complications; E03.9 Hypothyroidism, unspecified; J96.11 Chronic respiratory failure with hypoxia; I25.10 Atherosclerotic heart disease of native coronary artery without angina pectoris; I27.20 Pulmonary hypertension, unspecified; I27.81 Cor pulmonale (chronic)
CPT/HCPCS: 80053; 80061; 83036; 84439; 84443

== ENCOUNTER → 2023-07-01 15:39 | Outpatient (CLI) | payer MEDICARE, OTHER, SELFPAY ==
[2023-07-01 20:55] LABS: Creatinine Urine Random 69.3 mg/dL
[2023-07-01 20:58] LABS: Microalbumi Creatinin Ratio Ur 17.3 ug/mg CR (<30); Microalbumin Urine Random 1.2 mg/dL (0-1.6)
== END ==
PROVIDERS: Family Provider Internal Medicine; PCP Internal Medicine; Referring Provider Internal Medicine; Visit Provider Internal Medicine
DX: N18.31 Chronic kidney disease, stage 3a (principal); J96.11 Chronic respiratory failure with hypoxia; I25.10 Atherosclerotic heart disease of native coronary artery without angina pectoris; I27.20 Pulmonary hypertension, unspecified; E11.9 Type 2 diabetes mellitus without complications; I27.81 Cor pulmonale (chronic); E03.9 Hypothyroidism, unspecified
CPT/HCPCS: 82043; 82570

== ENCOUNTER 2023-08-25 21:15 | Observation (INO) | payer MEDICARE, OTHER, SELFPAY ==
[2023-08-25] VITALS (10 sets, daily range): BP systolic 143–212; BP diastolic 65–85; PULSE 45–64; RESP 20–34; TEMP 36.4; O2SAT 88–100; BMI 39.2
[2023-08-25 21:58] LABS: Add Manual Diff / Slide Review NO; Basophils Absolute Auto 100 /uL (0-100); Basophils Percent Auto 0.5 % (0-2); Eosinophils Absolute Auto 200 /uL (0-450); Eosinophils Percent Auto 1.6 % (2-4); Hematocrit 34.1 % (36-46); Hemoglobin 11.2 g/dL (12.0-16.0); Lymphocytes Absolute Auto 2000 /uL (1100-4500); Lymphocytes Percent Auto 14.1 % (25-40); Mean Corpuscular HGB Conc 32.9 % (30-36); Mean Corpuscular Hemoglobin 31.5 PG (26-34); Mean Corpuscular Volume 95.6 fL (80-100); Monocytes Absolute Auto 900 /uL (0-900); Monocytes Percent Auto 6.6 % (3-14); Neutrophils Absolute Auto 10900 /uL (1500-7000); Neutrophils Percent Auto 77.2 % (50-75); Platelet Count 255 X10^3/uL (150-400); Red Blood Cell Count 3.57 X10^6/uL (4.0-5.2); Red Cell Distribution Width 12.9 % (11.6-14.8); White Blood Cell Count 14.1 X10^3/uL (4.5-11.0)
--- NOTE | 2023-08-25 21:58 | EKG_ITS ---
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
[2023-08-25 22:09] LABS: Alanine Aminotransferase 30 IU/L (<35); Albumin 4.6 g/dL (3.5-5.0); Albumin Globulin Ratio 1.5 (1.0-2.8); Alkaline Phosphatase 74 U/L (38-126); Aspartate Aminotransferase 30 IU/L (14-36); BUN Creatinine Ratio 30.6 (6-22); Bilirubin Total 0.6 mg/dL (0.2-1.3); Blood Urea Nitrogen 44 mg/dL (7-17); Calcium 9.6 mg/dL (8.4-10.2); Carbon Dioxide 36 mmol/L (22-32); Chloride 82 mmol/L (98-107); Estimated Glomerular Filt Rate 39 mL/min (>60); Glucose 152 mg/dL (80-110); HEMOLYSIS < 15 (0-50); Lipase 260 U/L (23-300); Potassium 4.9 mmol/L (3.4-5.1); Sodium 121 mmol/L (137-145); Total Protein 7.6 g/dL (6.3-8.2)
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
--- NOTE | 2023-08-25 23:13 | DI.CT.S_ITS ---
PROCEDURE: CT KIDNEY URETER BLADDER (KUB) INDICATIONS: right flank pain TECHNIQUE: Axial sections were acquired from the lung bases to the pubic symphysis. Coronal and sagittal reformats were performed. For radiation dose reduction, the following was used: automated exposure control, adjustment of mA and/or kV according to patient size. COMPARISON: None. FINDINGS: Image quality: Diagnostic Lower chest: Scattered scarring and atelectasis. Small Bochdalek's hernia. Heart size is at the upper limit of normal. There may be atrial enlargement. Liver: Solid organs not well evaluated without IV contrast. No contour deforming mass Gallbladder and biliary system: Mildly distended. No biliary ductal dilation Pancreas: No ductal dilation Spleen: Nonenlarged Adrenals: No discrete nodules Kidneys: No contour deforming mass. No obstructing calcified stone. No hydronephrosis bilaterally. Vessels and lymph nodes: Atherosclerotic calcifications. No abdominal aortic aneurysm. Bowel and peritoneum: No evidence of small bowel obstruction. No pathologic ascites or drainable abscess. Colonic diverticula are seen. Moderate fecal loading in the proximal colon. The cecum is flipped to the left upper quadrant, without signs of obstruction Body wall: Moderate fat containing umbilical hernia Pelvis: Bladder is unremarkable. Suspected calcified fibroids seen in the posterior uterus. Adnexal structures not well evaluated on CT, overall unremarkable Bones: No acute or suspicious osseous finding. Degenerative changes are present. L5 on S1 anterolisthesis with chronic appearing pars defects. IMPRESSION: No obstructing stones or hydronephrosis. Moderate fat containing umbilical hernia. Other incidental and likely nonacute findings are described above. Dictated by: Stone Rasmussen M.D. on 08/26/2023 at 0:24 Approved by: Stone Rasmussen M.D. on 08/26/2023 at 0:29
[2023-08-26] VITALS (14 sets, daily range): BP systolic 114–175; BP diastolic 44–81; PULSE 46–64; RESP 20–37; TEMP 36.3–36.4; O2SAT 93–100; BMI 39.2
[2023-08-26] MEDS: SODIUM CHLORIDE 0.9% 1,000 ML 100 ML IV ×2 (02:55→14:36)
[2023-08-26 05:37] LABS: Add Manual Diff / Slide Review NO; Basophils Absolute Auto 100 /uL (0-100); Basophils Percent Auto 0.7 % (0-2); Eosinophils Absolute Auto 400 /uL (0-450); Eosinophils Percent Auto 2.7 % (2-4); Hematocrit 33.6 % (36-46); Hemoglobin 11.1 g/dL (12.0-16.0); Lymphocytes Absolute Auto 2400 /uL (1100-4500); Lymphocytes Percent Auto 15.5 % (25-40); Mean Corpuscular HGB Conc 33.1 % (30-36); Mean Corpuscular Hemoglobin 31.7 PG (26-34); Mean Corpuscular Volume 95.8 fL (80-100); Monocytes Absolute Auto 1100 /uL (0-900); Monocytes Percent Auto 6.9 % (3-14); Neutrophils Absolute Auto 11500 /uL (1500-7000); Neutrophils Percent Auto 74.2 % (50-75); Platelet Count 243 X10^3/uL (150-400); Red Blood Cell Count 3.51 X10^6/uL (4.0-5.2); Red Cell Distribution Width 13.3 % (11.6-14.8); White Blood Cell Count 15.5 X10^3/uL (4.5-11.0)
[2023-08-26 06:33] LABS: BUN Creatinine Ratio 31.5 (6-22); Blood Urea Nitrogen 41 mg/dL (7-17); Calcium 8.9 mg/dL (8.4-10.2); Carbon Dioxide 36 mmol/L (22-32); Chloride 84 mmol/L (98-107); Estimated Glomerular Filt Rate 44 mL/min (>60); Glucose 136 mg/dL (80-110); HEMOLYSIS < 15 (0-50); Potassium 4.4 mmol/L (3.4-5.1); Sodium 125 mmol/L (137-145)
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
--- NOTE | 2023-08-26 11:18 | CM.DANOTE ---
Initial DCP Assessment Visit Note Reviewed EMR and team rounds for status updates. Met with pt at bedside to introduce self and role, pt was found to be sitting upright in the recliner, still very short of breath with speaking, and even more so w/exertion. Pt resides modified independently with her spouse in their own home here in [place]. Her spouse will be transporting her back home at time of d/c, which is likely tomorrow, per her PCP. She denies any DCP assistance/resources at this time. Payor: Medicare PCP-Dr. Greer Pt is a 68 year-old F with a hx of pulmonary hypertension, COPD, CHF, and on 4-LO2 at home baseline presented to the ED yesterday afternoon with 2-days right-sided kidney pain, excessive thirst, and increased confusion. CT kidney was unremarkable, however she was found to be hyponatremic. She was placed on 4LO2, started on IV fluids, and brought to the floor under OBS for continued monitoring/tx. DCP will continue to follow and assist with any evolving needs prior to her home d/c. Discharge Planning/Care Management CM Discharge Assessment Start: 08/26/23 11:15 Freq: Status: Active Protocol: Document 08/26/23 11:15 DPL (Rec: 08/26/23 11:17 DPL [id number]) Discharge Planning Assessment Assigned Electronics Engineering Technician JAGDISH Fuentes Advance Directives? No History Provided By Patient,Medical Record Has Patient been admitted in last 30 No days? Prior Living Arrangements House Household Members spouse Type of transporation used prior to Relies on Others admit Independent with ADL's No: modified independent Is patient alert and oriented? Yes: somewhat confused due to hyponatremia Needs Assistance With Meal Prep,Managing Medications ,Home Chores / Shopping Caregiver for Another No Community Services used prior to Oxygen Therapy admission: Comment Pt is on 4LO2 at home baseline . DME Already Rented / Owned Bath Bench,Elevated Toilet Seat,FWW / Walker,Oxygen Discharge Plan Home Community Services Oxygen Therapy Transportation Arrangement Spouse Referrals Initiated None needed Whiteboard Updated in Patient Room with Yes name and ext. # of Electronics Engineering Technician Review Status In Process Please Provide Date Initial DC 08/26/23 Assessment Was Performed
[2023-08-26] MEDS: FUROSEMIDE 40 MG TABLET PO (12:12)
[2023-08-26] MEDS: INSULIN LISPRO 100 UNIT/ML 3ML VIAL SUBCUT (12:12)
[2023-08-26] MEDS: ACETAMINOPHEN 325 MG TABLET 650 MG PO (14:32)
[2023-08-26] MEDS: clonazePAM 0.5 MG TABLET 1 MG PO (21:35)
[2023-08-26] MEDS: QUETIAPINE 25 MG TABLET 50 MG PO (21:35)
[2023-08-27] MEDS: SODIUM CHLORIDE 0.9% 1,000 ML 100 ML IV (01:00)
[2023-08-27] MEDS: LEVOTHYROXINE 100 MCG TABLET PO (05:47)
[2023-08-27 06:56] VITALS: BP 154/34; PULSE 60; RESP 22; TEMP 36.1; O2SAT 95
[2023-08-27 07:11] LABS: Add Manual Diff / Slide Review NO; Basophils Absolute Auto 0 /uL (0-100); Basophils Percent Auto 0.5 % (0-2); Eosinophils Absolute Auto 500 /uL (0-450); Eosinophils Percent Auto 5.4 % (2-4); Hematocrit 32.4 % (36-46); Hemoglobin 10.9 g/dL (12.0-16.0); Lymphocytes Absolute Auto 1500 /uL (1100-4500); Mean Corpuscular HGB Conc 33.6 % (30-36); Mean Corpuscular Hemoglobin 32.4 PG (26-34); Mean Corpuscular Volume 96.4 fL (80-100); Monocytes Absolute Auto 800 /uL (0-900); Monocytes Percent Auto 8.6 % (3-14); Neutrophils Absolute Auto 6500 /uL (1500-7000); Neutrophils Percent Auto 69.5 % (50-75); Platelet Count 204 X10^3/uL (150-400); Red Blood Cell Count 3.37 X10^6/uL (4.0-5.2); Red Cell Distribution Width 13.4 % (11.6-14.8); White Blood Cell Count 9.4 X10^3/uL (4.5-11.0)
[2023-08-27 07:23] LABS: BUN Creatinine Ratio 30.4 (6-22); Blood Urea Nitrogen 34 mg/dL (7-17); Calcium 8.5 mg/dL (8.4-10.2); Carbon Dioxide 35 mmol/L (22-32); Chloride 93 mmol/L (98-107); Estimated Glomerular Filt Rate 53 mL/min (>60); Glucose 136 mg/dL (80-110); HEMOLYSIS 22 (0-50); Potassium 4.6 mmol/L (3.4-5.1); Sodium 130 mmol/L (137-145)
[2023-08-27 08:00] VITALS: BP 160/52; PULSE 58; RESP 18; TEMP 36.6; O2SAT 99
[2023-08-27 08:28] VITALS: O2SAT 95
[2023-08-27] MEDS: POTASSIUM CHLORIDE 10 MEQ TAB PO (08:57)
[2023-08-27] MEDS: clonazePAM 0.5 MG TABLET 1 MG PO (08:57)
[2023-08-27] MEDS: ASPIRIN EC 81 MG TABLET PO (08:57)
[2023-08-27] MEDS: lisinopriL 10 MG TABLET PO (08:58)
[2023-08-27] MEDS: FUROSEMIDE 40 MG TABLET PO (09:25)
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
== END 2023-08-27 12:29 | disposition home or self-care (01) ==
LOC: ED 08-26 01:09 → AC 08-26 02:24
PROVIDERS: Admitting Provider Family Medicine; Emergency Provider Emergency Medicine; Family Provider Internal Medicine; PCP Internal Medicine; Referring Provider Emergency Medicine; Visit Provider Family Medicine
DX: E87.1 Hypo-osmolality and hyponatremia (principal); I50.9 Heart failure, unspecified; I13.0 Hypertensive heart and chronic kidney disease with heart failure and stage 1 through stage 4 chronic kidney disease, or unspecified chronic kidney disease; N18.31 Chronic kidney disease, stage 3a; J96.11 Chronic respiratory failure with hypoxia; J44.9 Chronic obstructive pulmonary disease, unspecified; I27.29 Other secondary pulmonary hypertension; E11.9 Type 2 diabetes mellitus without complications; Z99.81 Dependence on supplemental oxygen; Z87.891 Personal history of nicotine dependence
CPT/HCPCS: 36415; 74176; 80048; 80053; 81003; 82962; 83690; 85025; 93005; 94762; 96360; 96361; 99223; 99238; 99284; G0378; J1650; J1815

== ENCOUNTER → 2023-09-11 15:03 | Outpatient (CLI) | payer MEDICARE, OTHER, SELFPAY ==
[2023-08-31 15:48] VITALS: BMI 39.2
[2023-09-11 18:42] LABS: BUN Creatinine Ratio 22.2 (6-22); Blood Urea Nitrogen 26 mg/dL (7-17); Carbon Dioxide 36 mmol/L (22-32); Chloride 91 mmol/L (98-107); Estimated Glomerular Filt Rate 50 mL/min (>60); Glucose 151 mg/dL (80-110); HEMOLYSIS < 15 (0-50); Sodium 133 mmol/L (137-145)
[2023-09-11 18:49] LABS: NT-proBNP (BNP-Adult 18+) 626 pg/mL (<125)
[2023-09-11 19:36] LABS: Free T3, Triiodothyronine Free 3.28 pg/mL (2.77-5.27); Free T4, Direct Thyroxine 1.49 ng/dL (0.78-2.19)
[2023-09-11 19:50] LABS: Thyroid Stimulating Hormone 1.21 uIU/mL (0.47-4.68)
== END ==
PROVIDERS: Family Provider Internal Medicine; PCP Internal Medicine; Referring Provider Internal Medicine; Visit Provider Internal Medicine
DX: I50.9 Heart failure, unspecified (principal); E03.9 Hypothyroidism, unspecified; E87.1 Hypo-osmolality and hyponatremia; J96.11 Chronic respiratory failure with hypoxia; N18.31 Chronic kidney disease, stage 3a
CPT/HCPCS: 80048; 83880; 84439; 84443; 84481